=== PATIENT | female | born 1930 | race Caucasian/White ===

== ENCOUNTER → 2016-06-07 | Outpatient (CLI) | payer MEDICARE ==
[2016-06-07 18:14] LABS: MEAN CORPUSCULAR HEMOGLOBIN 32.1 pg (27.0-33.0); MEAN CORPUSCULAR HGB CONC 31.9 g/dl (32.0-36.5); MEAN CORPUSCULAR VOLUME 100.6 fl (80.0-96.0); RED CELL DISTRIBUTION WIDTH 13.4 % (11.5-14.5)
[2016-06-07 18:38] LABS: ALBUMIN 3.3 GM/DL (3.2-5.2); ALBUMIN/GLOBULIN RATIO 1.18 (1.00-1.93); ALKALINE PHOSPHATASE 79 U/L (45-117); ALT/SGPT 25 U/L (12-78); ANION GAP 7 MEQ/L (8-16); AST/SGOT 24 U/L (15-37); BILIRUBIN,TOTAL 0.4 MG/DL (0.2-1.0); BLOOD UREA NITROGEN 11 MG/DL (7-18); CALCIUM LEVEL 8.7 MG/DL (8.8-10.2); CARBON DIOXIDE LEVEL 34 MEQ/L (21-32); CHLORIDE LEVEL 101 MEQ/L (98-107); CHOLESTEROL LEVEL 163 MG/DL (<200); GLOMERULAR FILTRATION RATE > 60.0 (>32); GLUCOSE, FASTING 82 MG/DL (83-110); POTASSIUM SERUM 4.2 MEQ/L (3.5-5.1); SODIUM LEVEL 142 MEQ/L (136-145); TOTAL PROTEIN 6.1 GM/DL (6.4-8.2); TRIGLYCERIDES LEVEL 114 MG/DL (<150)
== END ==
LOC: M WUC 12:51
PROVIDERS: ATTEND Nurse Practitioner Family
DX: E78.00 Pure hypercholesterolemia, unspecified (principal); M81.0 Age-related osteoporosis without current pathological fracture; I10 Essential (primary) hypertension; E55.9 Vitamin D deficiency, unspecified

== ENCOUNTER → 2016-06-07 | Outpatient (CLI) | payer MEDICARE | LOC: M WUC 12:46 | PROVIDERS: ATTEND Physician Assistant Medical | DX: R25.1 Tremor, unspecified (principal) ==

== ENCOUNTER → 2016-07-06 | Outpatient (REF) | payer MEDICARE ==
[2016-07-06 16:47] LABS: MEAN CORPUSCULAR HEMOGLOBIN 32.3 pg (27.0-33.0); MEAN CORPUSCULAR HGB CONC 32.7 g/dl (32.0-36.5); RED CELL DISTRIBUTION WIDTH 12.8 % (11.5-14.5); WHITE BLOOD COUNT 11.1 K/mm3 (4.0-10.0)
[2016-07-06 17:05] LABS: VITAMIN B12 LEVEL 712 PG/ML (247-911)
[2016-07-06 17:06] LABS: FOLATE > 24.0 NG/ML (>5.4)
== END ==
LOC: M LABDRAW1 15:26
PROVIDERS: ATTEND Nurse Practitioner Family
DX: E53.8 Deficiency of other specified B group vitamins (principal); D64.9 Anemia, unspecified

== ENCOUNTER → 2016-09-07 | Outpatient (REF) | payer MEDICARE ==
[2016-09-07 13:17] LABS: FOLATE 21.9 NG/ML
== END ==
LOC: M LABDRAW1 12:05
PROVIDERS: ATTEND Internal Medicine Gastroenterology
DX: K50.00 Crohn's disease of small intestine without complications (principal); E78.5 Hyperlipidemia, unspecified; I10 Essential (primary) hypertension

== ENCOUNTER → 2016-09-07 | Outpatient (REF) | payer MEDICARE ==
[2016-09-07 13:03] LABS: MEAN CORPUSCULAR VOLUME 99.8 fl (80.0-96.0); RED CELL DISTRIBUTION WIDTH 12.9 % (11.5-14.5); WHITE BLOOD COUNT 11.4 K/mm3 (4.0-10.0)
[2016-09-07 13:08] LABS: ALBUMIN 3.3 GM/DL (3.2-5.2); ALBUMIN/GLOBULIN RATIO 1.22 (1.00-1.93); ALKALINE PHOSPHATASE 68 U/L (45-117); ALT/SGPT 22 U/L (12-78); ANION GAP 6 MEQ/L (8-16); AST/SGOT 19 U/L (15-37); BILIRUBIN,TOTAL 0.5 MG/DL (0.2-1.0); BLOOD UREA NITROGEN 8 MG/DL (7-18); CALCIUM LEVEL 8.3 MG/DL (8.8-10.2); CARBON DIOXIDE LEVEL 32 MEQ/L (21-32); CHLORIDE LEVEL 100 MEQ/L (98-107); CHOLESTEROL LEVEL 153 MG/DL (<200); CREATININE FOR GFR 0.61 MG/DL (0.55-1.02); GLOMERULAR FILTRATION RATE > 60.0 (>32); GLUCOSE, FASTING 88 MG/DL (83-110); POTASSIUM SERUM 4.4 MEQ/L (3.5-5.1); SODIUM LEVEL 138 MEQ/L (136-145); TRIGLYCERIDES LEVEL 83 MG/DL (<150)
== END ==
LOC: M LABDRAW1 12:06
PROVIDERS: ATTEND Nurse Practitioner Family
DX: E78.5 Hyperlipidemia, unspecified (principal); I10 Essential (primary) hypertension

== ENCOUNTER → 2016-12-08 | Outpatient (REF) | payer MEDICARE ==
[2016-12-08 11:37] LABS: MEAN CORPUSCULAR HGB CONC 32.3 g/dl (32.0-36.5); MEAN CORPUSCULAR VOLUME 99.2 fl (80.0-96.0); RED CELL DISTRIBUTION WIDTH 12.8 % (11.5-14.5); WHITE BLOOD COUNT 12.2 K/mm3 (4.0-10.0)
[2016-12-08 12:23] LABS: ALBUMIN 3.3 GM/DL (3.2-5.2); ALBUMIN/GLOBULIN RATIO 1.32 (1.00-1.93); ALKALINE PHOSPHATASE 68 U/L (45-117); ALT/SGPT 17 U/L (12-78); ANION GAP 6 MEQ/L (8-16); AST/SGOT 17 U/L (15-37); BILIRUBIN,TOTAL 0.4 MG/DL (0.2-1.0); BLOOD UREA NITROGEN 6 MG/DL (7-18); CALCIUM LEVEL 8.4 MG/DL (8.8-10.2); CARBON DIOXIDE LEVEL 31 MEQ/L (21-32); CHLORIDE LEVEL 102 MEQ/L (98-107); CHOLESTEROL LEVEL 161 MG/DL (<200); GLOMERULAR FILTRATION RATE > 60.0 (>32); GLUCOSE, FASTING 90 MG/DL (83-110); POTASSIUM SERUM 4.4 MEQ/L (3.5-5.1); SODIUM LEVEL 139 MEQ/L (136-145); TOTAL PROTEIN 5.8 GM/DL (6.4-8.2); TRIGLYCERIDES LEVEL 88 MG/DL (<150)
== END ==
LOC: M LABDRAW1 10:23
PROVIDERS: ATTEND Internal Medicine Cardiovascular Disease
DX: E55.9 Vitamin D deficiency, unspecified (principal); R25.1 Tremor, unspecified; Z79.01 Long term (current) use of anticoagulants; Z79.899 Other long term (current) drug therapy

== ENCOUNTER → 2016-12-08 | Outpatient (REF) | payer MEDICARE ==
[2016-12-13 00:07] LABS: PHENOBARBITAL (PRIMIDONE) 12 ug/mL (15-40)
== END ==
LOC: M LABDRAW1 10:26
PROVIDERS: ATTEND Physician Assistant Medical
DX: R25.1 Tremor, unspecified (principal); Z79.01 Long term (current) use of anticoagulants; Z79.899 Other long term (current) drug therapy

== ENCOUNTER → 2016-12-23 | Outpatient (CLI) | payer MEDICARE ==
[2016-12-23 11:27] LABS: BASO # 0.1 K/mm3 (0.0-0.2); BASO % 0.4 % (0.0-1.0); EOS # 0.2 K/mm3 (0.0-0.50); LARGE UNSTAINED CELL # 0.5 K/mm3 (0.0-0.4); LARGE UNSTAINED CELL % 3.6 % (0.0-4.0); LYMPH # 5.1 K/mm3 (1.5-4.5); LYMPH % 31.2 % (24.0-44.0); MEAN CORPUSCULAR HGB CONC 33.4 g/dl (32.0-36.5); MEAN CORPUSCULAR VOLUME 98.8 fl (80.0-96.0); NEUTROPHILS # 8.2 K/mm3 (1.8-7.7); NEUTROPHILS % 56.7 % (36.0-66.0); PLATELET COUNT, AUTOMATED 173 k/mm3 (150-450); RED CELL DISTRIBUTION WIDTH 13.2 % (11.5-14.5)
[2016-12-23 11:28] LABS: WHITE BLOOD COUNT 14.5 K/mm3 (4.0-10.0)
== END ==
LOC: M LAB 10:10
PROVIDERS: ATTEND Nurse Practitioner Family
DX: D53.9 Nutritional anemia, unspecified (principal)

== ENCOUNTER → 2017-01-12 | Outpatient (CLI) | payer MEDICARE ==
[2017-01-13 12:41] LABS: ANION GAP 10 MEQ/L (8-16); BLOOD UREA NITROGEN 9 MG/DL (7-18); CALCIUM LEVEL 8.4 MG/DL (8.8-10.2); CARBON DIOXIDE LEVEL 29 MEQ/L (21-32); CHLORIDE LEVEL 99 MEQ/L (98-107); CREATININE FOR GFR 0.73 MG/DL (0.55-1.02); GLOMERULAR FILTRATION RATE > 60.0 (>32); GLUCOSE, FASTING 161 MG/DL (83-110); POTASSIUM SERUM 4.3 MEQ/L (3.5-5.1); SODIUM LEVEL 138 MEQ/L (136-145)
== END ==
LOC: M LRY 15:03
PROVIDERS: ATTEND Nurse Practitioner Family
DX: I10 Essential (primary) hypertension (principal)

== ENCOUNTER → 2017-02-09 | Outpatient (CLI) | payer MEDICARE ==
[2017-02-09 13:33] LABS: ANION GAP 8 MEQ/L (8-16); BLOOD UREA NITROGEN 8 MG/DL (7-18); CALCIUM LEVEL 8.5 MG/DL (8.8-10.2); CARBON DIOXIDE LEVEL 31 MEQ/L (21-32); CHLORIDE LEVEL 100 MEQ/L (98-107); CREATININE FOR GFR 0.61 MG/DL (0.55-1.02); GLOMERULAR FILTRATION RATE > 60.0 (>32); GLUCOSE, FASTING 92 MG/DL (83-110); POTASSIUM SERUM 4.6 MEQ/L (3.5-5.1); SODIUM LEVEL 139 MEQ/L (136-145)
== END ==
LOC: M WUC 09:13
PROVIDERS: ATTEND Nurse Practitioner Family
DX: I10 Essential (primary) hypertension (principal)

== ENCOUNTER 2017-05-15 13:38 | Inpatient (IN) | payer MEDICARE ==
[~2017-05-15] VITALS: Ht 160 cm; Wt 70.2 kg
[2017-05-15] MEDS ORDERED: RALO1TAB PO (14:16)
[2017-05-15] MEDS ORDERED: PENT500C PO (14:16)
[2017-05-15] MEDS ORDERED: K-TA10TA2 PO (14:16)
[2017-05-15] MEDS ORDERED: VITA250L PO (14:16)
[2017-05-15] MEDS ORDERED: VITA2000 PO (14:16)
[2017-05-15] MEDS ORDERED: LASI40TA PO (14:16)
[2017-05-15] MEDS ORDERED: CENTCHW4 PO (14:16)
[2017-05-15] MEDS ORDERED: NAME28CA PO (14:16)
[2017-05-15] MEDS ORDERED: CALC600T60 PO (14:16)
[2017-05-15] MEDS ORDERED: MAGN200T PO (14:16)
[2017-05-15] MEDS ORDERED: INDE1CAP6 PO (14:16)
[2017-05-15] MEDS ORDERED: ASPI1TAB PO ×2 (14:16→17:09)
[2017-05-15] MEDS ORDERED: PRIM250T8 PO ×3 (14:16→17:07)
[2017-05-15] MEDS ORDERED: NS 1,000 ML IV SCH (14:45)
[2017-05-15] MEDS ORDERED: MORPHINE 2 MG/ML 1ML SYRINGE IV ONE (14:45)
[2017-05-15] MEDS ORDERED: ONDANSETRON 4MG/2ML VIAL (J2405) IV ONE (14:45)
--- NOTE | 2017-05-15 15:25 | REP ---
CT STUDY OF THE CERVICAL SPINE WITHOUT CONTRAST: HISTORY: Injury in a fall. TECHNIQUE: Helical scanning is acquired and overlapping 2 mm high resolution axial images were generated and reviewed at bone and soft tissue window settings. Coronal and sagittal multiplanar re-formations images are generated. CT FINDINGS: There is no evidence of cervical spine element fracture. No skull base fracture is seen. Cervical vertebral body heights are preserved. Alignment is normal. Facet joints are normally aligned bilaterally at each cervical level on multiplanar re-formations images. There is no evidence of intraspinal or paraspinal hematoma. No extra vertebral abnormality is seen. There are degenerative disc changes diffusely. These are most pronounced at C5-6 and C6-7 where there is anterior and some posterior osteophyte formation. There is left-sided uncovertebral spurring at C5-6. Incidental note is made of a 9 mm low density area in the right thyroid lobe consistent with cyst or nodule. IMPRESSION: Degenerative spondylosis changes. Otherwise negative CT study of the cervical spine without contrast. No fracture seen. 9 mm low density area right thyroid lobe. Signed by Uriel Pink MD 05/15/2017 05:06 P
--- NOTE | 2017-05-15 15:36 | REP ---
CT brain without contrast: History: Injury in a fall. Findings: Bone window settings demonstrate an intact bony calvarium. Digital account services representative radiographs are remarkable only for scalp swelling over the posterior vertex. This is consistent with scalp hematoma. It is confirmed on axial CT images. Bone window settings show no evidence of skull fracture. Visualized paranasal sinuses are clear. Some vascular calcifications noted in the distal carotid arteries. No intraorbital abnormality is seen. There is an acute extra-axial hyperdense fluid collection in the left posterior frontal lobe region consistent with an acute subdural hematoma. This measures 1.5 cm in greatest thickness by 4.5 cm in oblique anteroposterior dimension. There is subtle attenuation of the frontal horn of the lateral ventricle and compression of the adjacent sulci and gyri. No midline shift is appreciated. There is no evidence of parenchymal hemorrhage. No infarct or mass lesion is observed. There is diffuse moderate atrophy. Impression: Acute subdural hematoma left frontal lobe region. 1.5 x 4.5 x 5 cm craniocaudal. No skull fracture seen. There is however a scalp hematoma at the occiput. Diffuse atrophy and vascular calcification are also noted. Telephone report was provided at time of this dictation to the referring provider. Signed by Uriel Pink MD 05/15/2017 05:06 P
[2017-05-15 15:49] LABS: MEAN CORPUSCULAR HGB CONC 32.8 g/dl (32.0-36.5); MEAN CORPUSCULAR VOLUME 97.6 fl (80.0-96.0); PLATELET COUNT, AUTOMATED 171 10^3/uL (150-450); RED CELL DISTRIBUTION WIDTH 13.9 % (11.5-14.5); WHITE BLOOD COUNT 29.4 10^3/uL (4.0-10.0)
--- NOTE | 2017-05-15 15:54 | REP ---
Portable chest x-ray: Single view: History: Injury in a fall. Comparison chest x-ray December 25, 2015. Findings: Mild cardiomegaly is observed. EKG monitoring electrodes overlie the chest. There are clips in the lower mediastinum projecting over the lower thoracic spine as well as in the right upper quadrant of the abdomen unchanged. There is no evidence of pneumothorax or hydrothorax. There is an old rib fracture on the right effecting rib number seven. No acute rib fracture or other fracture is seen. There is diffuse osteopenia. The thoracic aorta is tortuous and somewhat calcific. Impression: No acute disease. Signed by Uriel Pink MD 05/15/2017 05:07 P
--- NOTE | 2017-05-15 15:55 | REP ---
AP pelvis and left hip: Four views: History: Injury in a fall. Findings: AP and lateral views of the left hip and AP view of the pelvis are presented. These demonstrate a nondisplaced intertrochanteric fracture of the left hip apparently in conjunction with an impacted subcapital femoral neck fracture. Bony pelvic ring is intact. No sacral or pelvic fracture is seen. Right hip is intact. There is some vascular calcification and diffuse osteopenia. Impression: Nondisplaced intertrochanteric and subcapital neck fractures left hip. Signed by Uriel Pink MD 05/15/2017 05:07 P
--- NOTE | 2017-05-15 15:55 | REP ---
Left femur: Three views: History: Injury in a fall. Findings: Three views of the left distal femur show no additional femur fracture. There is diffuse osteopenia. Chondrocalcinosis is noted. Vascular calcification is seen. Impression: Diffuse osteopenia. No additional femur fracture. Signed by Uriel Pink MD 05/15/2017 05:07 P
[2017-05-15 16:03] LABS: INR 1.01
[2017-05-15 16:16] LABS: ANION GAP 9 MEQ/L (8-16); BLOOD UREA NITROGEN 10 MG/DL (7-18); CALCIUM LEVEL 8.1 MG/DL (8.8-10.2); CARBON DIOXIDE LEVEL 31 MEQ/L (21-32); CHLORIDE LEVEL 99 MEQ/L (98-107); CREATININE FOR GFR 0.46 MG/DL (0.55-1.02); GLOMERULAR FILTRATION RATE > 60.0 (>32); GLUCOSE, FASTING 140 MG/DL (83-110); POTASSIUM SERUM 4.5 MEQ/L (3.5-5.1); SODIUM LEVEL 139 MEQ/L (136-145)
--- NOTE | 2017-05-15 16:58 | REP ---
CT study of the left hip without contrast: History: Injury in a fall. Fracture. Comparison radiographs demonstrate evidence of both subcapital and intertrochanteric fractures. CT technique: Helical scanning is acquired. 3 mm axial images are reformatted. Coronal and sagittal multiplanar re-formation images are generated reviewed. In addition, surface rendered 3-D reconstructed images are generated and viewed rotationally. CT findings: CT images confirm the presence of a slightly comminuted intertrochanteric fracture of the proximal femur. This is somewhat diastatic and 3-D reformation images demonstrate mild apex anterior angulation. No femoral neck fracture is appreciated however. There is some chondrocalcinosis surrounding the head neck junction in the adjacent soft tissues. There is osteoarthritis in the left hip joint mild in degree. Diffuse osteopenia is noted. The visualized left hemipelvis is intact. Some vascular calcifications noted. Impression: Intertrochanteric fracture left hip. No femoral neck fracture seen. Chondrocalcinosis and mild osteoarthritis. Signed by Uriel Pink MD 05/15/2017 05:09 P
[2017-05-15] MEDS ORDERED: ASPI81TA85 PO (16:59)
[2017-05-15] MEDS ORDERED: VITMTA PO (17:07)
[2017-05-15] MEDS ORDERED: MAGN64TASA PO (17:07)
[2017-05-15] MEDS ORDERED: [UNRECOGNIZED DRUG - OTHER] PO (17:11)
--- NOTE | 2017-05-15 18:48 | CR ---
DATE OF CONSULTATION: 05/15/2017 CONSULTATION REPORT FOR: Dr. Guillermo Quinteros (hospitalist consult) Hospitalist was consulted on Betzy Schreiber. She has been admitted to Dr. Quinteros's neurosurgical service. She fell off a stepladder hanging [facility] today and has a neurosurgical problem of acute subdural hematoma left frontal lobe. She also fractured her left hip and is being seen by orthopedics. Hospitalist consulted for medical care. Past medical history is difficult to obtain. Patient is 86 and vague on medical details. Primary care provider is Ciara Evans at [facility]. They are closed and the records are unavailable. I have encouraged telephone contact tomorrow to try to obtain a more complete past medical history. Apparently she has a history of hypertensive heart disease, she apparently has been seen by Dr. Negron at [facility], we do not have access to those records tonight either. She has no history of diabetes, chronic obstructive pulmonary disease (COPD), asthma, or bleeding disorders. Past medical history looks to include Crohn's disease. She has a B12 deficiency and history of osteoporosis or osteopenia, she is on raloxifene for this (see below for comment). HOME MEDICATIONS: - aspirin 81 mg daily - calcium carbonate 600 mg twice a day - vitamin D 400 units daily - B12 50 mcg daily - furosemide 40 mg daily - magnesium chloride 64 mg twice a day - Namenda XR 28 mg daily - Pentasa 500 mg three times a day - multivitamin - potassium chloride 10 mEq daily - primidone 125 mg in the evening, 250 mg in the morning - propranolol LA 160 mg daily - raloxifene 60 mg daily ALLERGIES: MEPERIDINE. SOCIAL HISTORY: Nonsmoker. Has attentive family members. REVIEW OF SYSTEMS: No recent problems with chest pain, shortness of breath, epistaxis, rectal bleeding or urinary bleeding. PHYSICAL EXAMINATION: Blood pressure 120/84, pulse 60, respiratory rate 18, 94% oxygen saturation on room air. GENERAL APPEARANCE: Elderly, frail, resting comfortably, alert and conversant. HEENT: Scalp hematoma over the occiput. NECK: Supple. LUNGS: Clear. HEART: Regular rhythm, 1/6 systolic ejection murmur. ABDOMEN: Soft, nontender, no masses. 1+ peripheral edema with distal pulses. Tender to palpation over left hip. LABORATORY DATA: Electrolytes unremarkable. Magnesium was not checked. White count is 29,000. IMPRESSION: 1. Hypertensive heart disease. Would recommend holding her aspirin and diuretic therapy. Continue her propranolol LA 160 mg daily. 2. Chronic edema. She is nothing by mouth. Will hold her Lasix. There is no sign of heart failure. Sounds like she takes her diuretic for lower extremity edema. Hold Lasix and potassium for now. Check magnesium level. 3. History of Crohn's disease. Continue her Pentasa 500 mg three times a day. 4. History of dementia. She is on Namenda XR 28 mg daily. We can substitute short acting Namenda and she can restart her XR version at home as it is not on formulary here. 5. B12 deficiency. Continue her oral B12. 6. History of tremor. She is on primidone which she will continue at 125 mg in the evening and 250 mg in the morning. 7. Osteoporosis. She is currently on raloxifene. Most recent [employer] guidelines for osteoporosis recommend not using raloxifene for osteoporosis due to limited benefit and increased thromboembolic risk. I will not continue this during hospitalization and advised family not to continue it upon discharge. They can discuss alternate medications with her primary care provider upon discharge. Dr. Carmona will be assuming hospitalist medical care in the morning.
--- NOTE | 2017-05-15 19:41 | ECGEPIP ---
Stationary ECG Study [facility] - ED Test Date: 2017-05-15 Pat Name: EZEKIEL PARKER Department: Room: - Gender: F Optical Advisor: LORI : [id number] Requested By: AMBER HARPER Order Number: [id number] Reading MD: Margaret Hampton Measurements Intervals [place] Rate: 64 P: 42 VA: 209 QRS: 5 QRSD: 81 T: -4 QT: 393 QTc: 407 Interpretive Statements SINUS RHYTHM WITH SINUS ARRHYTHMIA NSTTW ABNORMALITY Electronically Signed On 05-15-2017 19:40:49 EST by Margaret Hampton
[2017-05-15] MEDS ORDERED: ONDANSETRON 4MG/2ML VIAL (J2405) IV PRN (22:15)
[2017-05-15 22:30] VITALS: BP 150/71
[2017-05-15] MEDS: MORPHINE 2 MG/ML 1ML SYRINGE IV PRN (22:59)
[2017-05-15] MEDS: KCL 20MEQ IN D5/NS 1000ML 1,000 ML IV SCH (23:02)
[2017-05-15] MEDS: ACETAMINOPHEN TAB 650MG DOSE (2X325MG) PO SCH (23:15)
[2017-05-15] MEDS: PRIMIDONE 250 MG TAB PO SCH (23:39)
[2017-05-15] MEDS: MESALAMINE 250 MG CR CAP PO SCH (23:40)
[2017-05-16] VITALS (17 sets, daily range): BP systolic 91–145; BP diastolic 50–101
[2017-05-16 04:23] LABS: MEAN CORPUSCULAR HEMOGLOBIN 31.8 pg (27.0-33.0); MEAN CORPUSCULAR HGB CONC 33.3 g/dl (32.0-36.5); MEAN CORPUSCULAR VOLUME 95.4 fl (80.0-96.0); PLATELET COUNT, AUTOMATED 141 10^3/uL (150-450); RED CELL DISTRIBUTION WIDTH 13.9 % (11.5-14.5); WHITE BLOOD COUNT 15.7 10^3/uL (4.0-10.0)
[2017-05-16 04:43] LABS: ALBUMIN 2.6 GM/DL (3.2-5.2); ALKALINE PHOSPHATASE 62 U/L (45-117); ALT/SGPT 17 U/L (12-78); ANION GAP 8 MEQ/L (8-16); AST/SGOT 18 U/L (7-37); BILIRUBIN,DIRECT 0.1 MG/DL (0.0-0.2); BILIRUBIN,TOTAL 0.5 MG/DL (0.2-1.0); BLOOD UREA NITROGEN 11 MG/DL (7-18); CALCIUM LEVEL 7.5 MG/DL (8.8-10.2); CARBON DIOXIDE LEVEL 28 MEQ/L (21-32); CHLORIDE LEVEL 103 MEQ/L (98-107); CREATININE FOR GFR 0.53 MG/DL (0.55-1.02); GLOMERULAR FILTRATION RATE > 60.0 (>32); GLUCOSE, FASTING 141 MG/DL (83-110); SODIUM LEVEL 139 MEQ/L (136-145); TOTAL PROTEIN 5.5 GM/DL (6.4-8.2)
[2017-05-16] MEDS: MORPHINE 2 MG/ML 1ML SYRINGE IV PRN ×3 (04:59→20:56)
[2017-05-16] MEDS: ACETAMINOPHEN TAB 650MG DOSE (2X325MG) PO SCH ×4 (05:04→23:09)
--- NOTE | 2017-05-16 05:50 | REPUSA ---
CLINICAL HISTORY: Subdural hematoma. Followup exam. TECHNIQUE: Multiple axial CT images were obtained through the brain without IV contrast material. COMMENTS: Comparison to prior exam performed on 05/09/2017. Mild decrease in the size of the left frontal subdural hematoma. The maximum thickness of the hematoma has decreased from 1.3-1.1 cm on the current exam. Subsequent mild decrease in the mass effect on the left frontal lobe. Interval increase in the size of the left parietal component of the left subdural hematoma. It measur es 6 mm on the current exam. There is mild decrease in midline shift to the right side. There is normal configuration of sella turcica. There is diffuse age-appropriate cerebellar and cerebral atrophy with proportionally dilated ventricl es and cortical sulci. Right parietal subgaleal soft tissue hematoma. IMPRESSION: Comparison to prior exam performed on 05/09/2017. Mild decrease in the size of the left frontal subdural hematoma. The maximum thickness of the hematoma has decreased from 1.3 to 1.1 cm on the current exam. Subsequent mild decrease in the mass effect on the left frontal lobe. Interval increase in the size of the left parietal component of the left subdural hematoma. It measur es 6 mm on the current exam. Mild decrease in midline shift to the right side. Right parietal subgaleal soft tissue hematoma. Thank you for your kind referral of this patient.
[2017-05-16] MEDS ORDERED: MORPHINE 2 MG/ML 1ML SYRINGE IV ONE (06:00)
--- NOTE | 2017-05-16 07:35 | ED PDOC ---
Post-Departure Follow-Up radiology report faxed to Margaret Anderson MD May 16, 2017 07:35
--- NOTE | 2017-05-16 07:54 | IPNPDOC ---
Text Note Date of Service The patient was seen on 05/16/17. NOTE Subjective: Patient seen and examined at bedside. No acute overnight events. She does complain of hip pain with movement. Denies shortness of breath, chest pain, headaches, changes in vision. Objective: General: NAD, lying comfortably in bed, elderly HEENT: NC Lungs: CTA B/L Heart: +S1S2, RRR Abd: soft, NT, +BS Ext: no edema 86 yo female for acute SDH and left hip fx s/p mechanical fall. 1. SDH - management as per primary team - neurosurgery 2. Hip fx - pending ortho c/s - she states she is able to complete most of her ADLs independently including walking for over 15 minutes, and ascending/descending 25 stairs at her house without any chest pain or shortness of breath; no acute changes on ECG; she is medically optimized from a cardiac risk stratification perspective for planned orthopedic surgery, and will be considered moderate/high risk; further risk stratification as needed from the primary team with regards to her neurosurgical issues 3. HTN - management as per primary team 4. CHF 5. DVT prophylaxis - as per primary team VS,Hirenbone, I+O VS, Fishbone, I+O Laboratory Tests 05/15/17 15:30 Red Blood Count 3.78 L, Mean Corpuscular Volume 97.6 H, Mean Corpuscular Hemoglobin 32.0, Mean Corpuscular Hemoglobin Concent 32.8, Red Cell Distribution Width 13.9, Calcium Level 8.1 L 05/16/17 04:15 Red Blood Count 3.46 L, Mean Corpuscular Volume 95.4, Mean Corpuscular Hemoglobin 31.8, Mean Corpuscular Hemoglobin Concent 33.3, Red Cell Distribution Width 13.9 05/16/17 04:16 Calcium Level 7.5 L, Aspartate Amino Transf (AST/SGOT) 18, Alanine Aminotransferase (ALT/SGPT) 17, Alkaline Phosphatase 62, Total Bilirubin 0.5, Direct Bilirubin 0.1, Total Protein 5.5 L, Albumin 2.6 L Vital Signs Date Time Temp Pulse Resp B/P (MAP) Pulse Ox O2 Delivery O2 Flow Rate FiO2 05/16/17 06:15 24 05/16/17 06:00 73 125/64 (84) 100 Nasal Cannula 2.0 05/16/17 04:00 98.3 GARY ALICEA MD May 16, 2017 07:54
[2017-05-16] MEDS: PROPRANOLOL 80 MG LA CAP PO SCH (09:00)
[2017-05-16] MEDS: PRIMIDONE 250 MG TAB PO SCH ×2 (09:53→23:09)
[2017-05-16] MEDS: MESALAMINE 250 MG CR CAP PO SCH ×3 (09:53→23:09)
[2017-05-16] MEDS: CYANOCOBALAMIN 250 MCG TABLET PO SCH (09:54)
[2017-05-16] MEDS: MEMANTINE 5MG TABLET (NAMENDA) PO SCH ×2 (09:54→23:09)
[2017-05-16] MEDS: KCL 20MEQ IN D5/NS 1000ML 1,000 ML IV SCH (11:28)
--- NOTE | 2017-05-16 11:30 | CR ---
DATE OF CONSULTATION: 05/15/2017 INDICATION: Left hip fracture. HISTORY OF PRESENT ILLNESS: Betzy is an 86-year-old female that suffered a mechanical fall and landed on her left hip. She does not use a cane or assistive although the daughter thinks that she should. She fell and hit her head, in addition landing on her left hip. She had pain and inability to bear weight on the left side. She was brought to [facility] where x-rays revealed a fracture of the proximal femur and a head CT revealed a subdural hematoma. Neurosurgery was consulted for the subdural hematoma. Dr. Quinteros had stated the patient needed one week without blood thinners to minimize the risk of progression of the subdural hematoma and would likely need 24 hours prior to surgery to make sure on a repeat head CT the subdural is stable. For the patient's full past medical history, past surgical history, medications, allergies, social history, and review of systems, please see the admitting history and physical performed by the hospitalist. Exam revealed an elderly female in no distress. Alert and oriented times three. Neurologic: Appropriate mood and affect. Responds to questions appropriately. Cardiovascular: 2+ PT pulse with a regular rate. Pulmonary: Regular nonlabored breathing. Skin at the left hip was intact, without lesions. Musculoskeletal: Patient was tender to palpation at the greater trochanter. Any attempt at log roll elicited proximal femur pain. The knee was nontender. She wiggled her toes and sensation to light touch was grossly intact distally. X-rays of the left hip and femur revealed a mildly displaced intertrochanteric femur fracture. A CT of the pelvis was also obtained confirming that diagnosis. ASSESSMENT/PLAN: Bryan Schreiber is an 86 female with a left proximal femur fracture requiring surgical stabilization. We discussed operative and nonoperative treatment. The patient does not have dementia, no indication for nonoperative treatment. We discussed open reduction internal fixation (ORIF) with dynamic hip screw versus cephalomedullary nail. I did explain to the family that I would be unavailable to perform surgery as I will be out of town and that one of my partners would perform that surgery. Family will get consent from whoever is going to do the surgery.
[2017-05-16] MEDS ORDERED: fentaNYL 100 MCG/2 ML INJECTION (J3010) As Ordered ONE (17:08)
[2017-05-16] MEDS ORDERED: MIDAZOLAM INJ 2 MG/2 ML VIAL (J2250) As Ordered ONE (17:08)
[2017-05-16] MEDS ORDERED: KETAMINE HCL 200 MG/20 ML VIAL As Ordered ONE (17:09)
[2017-05-16] MEDS ORDERED: PROPOFOL 200 MG/20 ML VIAL As Ordered ONE (17:09)
[2017-05-16] MEDS ORDERED: BUPIVACAINE/EPIN 0.5% 30 ML VIAL As Ordered ONE (17:18)
[2017-05-16] MEDS ORDERED: ceFAZolin 2 GM/D5W 50 ML IV BAG (J0690 PER 500MG) As Ordered ONE (17:18)
[2017-05-16] MEDS ORDERED: LIDOCAINE W/EPINEPHRINE 1% 20ML VIAL As Ordered ONE (17:18)
[2017-05-16] MEDS ORDERED: PHENYLephrine HCL 500 MCG/5 ML (100MCG/ML) SYRINGE (J2370) As Ordered ONE (18:06)
[2017-05-16] MEDS ORDERED: PHENYLEPHRINE INJ 10MG/ML VIAL (J2370) As Ordered ONE (18:19)
[2017-05-16] MEDS ORDERED: ONDANSETRON 4MG/2ML VIAL (J2405) As Ordered ONE (18:20)
--- NOTE | 2017-05-16 19:12 | REP ---
LEFT FEMUR: 05/16/2017. Comparison: Left hip and femur series 05/15/2017. Findings: Six images from C-arm fluoroscopy provided to Dr. Adam of the orthopedic division. Intertrochanteric fracture is fixed in that left hip with intramedullary mike and a blade paddle device with its tip in the femoral head not extending to the articular cortex. Essentially anatomic alignment of the major fragments noted. A single screw across the proximal shaft of the intramedullary mike. I Fluoroscopy time: 58 seconds. Signed by Jose De Jesus Abel MD 05/16/2017 08:06 P
[2017-05-16] MEDS ORDERED: ACETAMINOPHEN TAB 650MG DOSE (2X325MG) PO PRN (19:30)
[2017-05-16] MEDS ORDERED: fentaNYL 100 MCG/2 ML INJECTION (J3010) IV PRN (19:30)
[2017-05-16] MEDS ORDERED: ONDANSETRON 4MG/2ML VIAL (J2405) IV PRN (19:30)
[2017-05-16] MEDS ORDERED: LR 1,000 ML IV SCH (19:30)
--- NOTE | 2017-05-16 19:56 | REP ---
LEFT HIP COMPLETE: 05/16/2017. Comparison: Left femur (intraoperative) 05/16/2017, hip and femur with CT hip 05/15/2017. Findings: Two images show ORIF of an intertrochanteric fracture. Short intramedullary mike with a single screw transfixing it to the proximal femoral shaft. A blade paddle unit in the femoral head with reapproximation to near anatomic alignment of the intertrochanteric fracture. Blade paddle not extending beyond articular surface of the femoral head. Bones demineralized. No other fractures or focal lesion. Skin keaton over the lateral hip. Signed by Jose De Jesus Abel MD 05/16/2017 08:09 P
[2017-05-16] MEDS: traMADol 50 MG TAB PO PRN (21:22)
[2017-05-17] VITALS (7 sets, daily range): BP systolic 118–149; BP diastolic 56–68
[2017-05-17] MEDS: MORPHINE 2 MG/ML 1ML SYRINGE IV PRN ×5 (00:09→22:13)
[2017-05-17] MEDS: KCL 20MEQ IN D5/NS 1000ML 1,000 ML IV SCH ×2 (02:12→13:24)
[2017-05-17] MEDS ORDERED: MORPHINE 2 MG/ML 1ML SYRINGE IV ONE (02:45)
[2017-05-17] MEDS ORDERED: diphenhydrAMINE 25 MG CAP PO ONE (02:45)
[2017-05-17] MEDS: ACETAMINOPHEN TAB 650MG DOSE (2X325MG) PO SCH ×3 (05:34→18:00)
[2017-05-17 06:45] LABS: MEAN CORPUSCULAR HEMOGLOBIN 31.8 pg (27.0-33.0); MEAN CORPUSCULAR HGB CONC 32.2 g/dl (32.0-36.5); MEAN CORPUSCULAR VOLUME 98.7 fl (80.0-96.0); PLATELET COUNT, AUTOMATED 106 10^3/uL (150-450); RED CELL DISTRIBUTION WIDTH 13.9 % (11.5-14.5)
[2017-05-17 07:12] LABS: ANION GAP 7 MEQ/L (8-16); BLOOD UREA NITROGEN 9 MG/DL (7-18); CARBON DIOXIDE LEVEL 24 MEQ/L (21-32); CHLORIDE LEVEL 103 MEQ/L (98-107); CREATININE FOR GFR 0.46 MG/DL (0.55-1.02); GLOMERULAR FILTRATION RATE > 60.0 (>32); GLUCOSE, FASTING 163 MG/DL (83-110); POTASSIUM SERUM 4.5 MEQ/L (3.5-5.1); SODIUM LEVEL 134 MEQ/L (136-145)
--- NOTE | 2017-05-17 08:03 | RO ---
DATE OF PROCEDURE: 05/16/2017 PREPROCEDURE DIAGNOSIS: Left proximal femur fracture. POSTPROCEDURE DIAGNOSIS: Left proximal femur fracture. PROCEDURE: Left hip cephalomedullary nail fixation. SURGEON: Dr. Douglas Machado ELECTRICAL APPLIANCE SERVICER: none ANESTHESIA PROVIDER: Dr. Coulter ANESTHESIA: Single shot spinal and local. IMPLANT USED: Synthes shot TFNA 170 mm x 11 mm with a 95 mm helical blade and a 32 mm x 5 mm distal interlocking screw. ANTIBIOTICS: 2 grams Ancef given within 1 hour of incision. ESTIMATED BLOOD LOSS: 100 mL. MATERIALS SENT TO LAB: None. COMPLICATIONS: None. INDICATION FOR PROCEDURE: Betzy Schreiber is an 86-year-old female community ambulator with no assisted devices who sustained a mechanical fall yesterday resulting in a left stable intertrochanteric femur fracture in addition to a small subdural hematoma. Patient was admitted to the ICU for observation and serial head CT. Neurosurgery was consulted for management of her subdural hematoma and it was found to be stable. The patient was medially optimized by the hospitalist service and medically cleared by the neurosurgeon for fixation of her left proximal femur fracture. I discussed with the patient and her family that the risks, benefits, indications, and alternatives with operative versus nonoperative management and recommended surgical fixation for left proximal femur fracture to allow for early weightbearing. I counseled the patient that I will be her operating surgeon and her followup care will conducted by [facility], she expressed understanding of this arrangement and provided informed consent for a left hip closed versus open reduction cephalomedullary nail fixation. INTRAOPERATIVE FINDINGS: Patient had a stable intertochanteric femur fracture with stable fixation. DESCRIPTION OF PROCEDURE: The patient was positively identified in the preoperative holding area where the surgical site was marked. She was then brought to the operating room where she was given the single shot spinal anesthesia for intraoperative pain control. She was placed supine on the fracture table with all bony prominences appropriately padded. Sequential compression devices (SCDs) were placed on upper extremities for deep venous thrombosis (DVT) prophylaxis. I obtained a provisional reduction using traction and adduction. I obtained director of plant operations fluoroscopic images and confirmed reduction on fluoroscopy. The spots were marked. She was then prepped and draped in the usual sterile fashion. A final time-out was performed. I began by making a 3 cm incision just about 3 cm proximal and posterior to the greater trochanter. I dissected through skin and subcutaneous tissue and introduced the 3.2 mm threaded guide pin and used fluoroscopic guidance to confirm that it was centered on AP and lateral fluoroscopic imaging on the tip of the greater trochanter, it was then introduced to the level of the lesser trochanter and this was followed by placement of the opening reamer down to the level of the lesser trochanter. This was then followed by placement of a ball tip guidewire. The nail was then inserted. There was found to be some mild difficulty inserting the nail secondary to narrow femoral canal. I then made a single pass with the 12.5 mm reamer followed by easy placement of the nail to an appropriate depth. I then made an accessory lateral incision distally for placement of the guide for the helical blade. The helical blade guide was then placed. The guide pin was entered and placed centered on the femoral neck on AP and lateral fluoroscopic imaging to an appropriate depth, it was measured to a depth of 95 mm, it was reamed in a standard fashion and then 95 mm helical blade was placed. I confirmed on fluoroscopy that there was no intra-articular penetration of implants. I then placed the guide for the distal interlocking screw through the same incision and drilled and measured for a 32 mm screw. A 32 mm x 5 mm distal interlocking screw was placed in a standard fashion. Final fluoroscopic images were taken. The wounds were thoroughly irrigated with normal saline and closed in layers of #2-0 Vicryl of subcutaneous layer and keaton through the skin. Sterile dressings were applied. I was present and scrubbed in for all portions of the case. POSTOPERATIVE PLAN: Patient will return to the hospital floor. She will be weightbearing at tolerated to the left lower extremity and continue her other care with the hospitalist service. She will be discharged from the hospital when criteria met. JOCELIN
[2017-05-17] MEDS: MESALAMINE 250 MG CR CAP PO SCH ×3 (08:43→22:13)
[2017-05-17] MEDS: traMADol 50 MG TAB PO PRN ×3 (08:43→23:33)
[2017-05-17] MEDS: PROPRANOLOL 80 MG LA CAP PO SCH (08:47)
[2017-05-17] MEDS: MEMANTINE 5MG TABLET (NAMENDA) PO SCH ×2 (08:48→22:13)
[2017-05-17] MEDS: CYANOCOBALAMIN 250 MCG TABLET PO SCH (08:48)
[2017-05-17] MEDS: PRIMIDONE 250 MG TAB PO SCH ×2 (08:49→22:14)
[2017-05-17] MEDS: MOM 30ML SUSPENSION UDC PO SCH (08:49)
[2017-05-17] MEDS: SENOKOT S TAB PO SCH ×2 (08:49→22:13)
[2017-05-17] MEDS: MIRALAX *UNIT DOSE* 17GM PACKET PO SCH (08:50)
--- NOTE | 2017-05-17 13:52 | REP ---
Left hip two views: Comparison is 05/16/2017. There is gamma nail fixation of the left hip. The hardware and skeletal structures are in satisfactory positions alignment. There is no interval change. Signed by Dalton Green MD 05/17/2017 01:44 P
[2017-05-17] MEDS: POLYVINYL ALCOHOL OPHTH SOLN 15 ML(LIQUITEARS) OU PRN ×2 (15:34→23:33)
[2017-05-18 06:00] VITALS: BP 131/69
[2017-05-18 07:13] LABS: MEAN CORPUSCULAR HEMOGLOBIN 32.2 pg (27.0-33.0); MEAN CORPUSCULAR HGB CONC 33.3 g/dl (32.0-36.5); MEAN CORPUSCULAR VOLUME 96.6 fl (80.0-96.0); PLATELET COUNT, AUTOMATED 110 10^3/uL (150-450); RED CELL DISTRIBUTION WIDTH 13.8 % (11.5-14.5); WHITE BLOOD COUNT 17.7 10^3/uL (4.0-10.0)
[2017-05-18 07:33] LABS: ANION GAP 5 MEQ/L (8-16); BLOOD UREA NITROGEN 8 MG/DL (7-18); CARBON DIOXIDE LEVEL 29 MEQ/L (21-32); CHLORIDE LEVEL 101 MEQ/L (98-107); CREATININE FOR GFR 0.44 MG/DL (0.55-1.02); GLOMERULAR FILTRATION RATE > 60.0 (>32); GLUCOSE, FASTING 139 MG/DL (83-110); POTASSIUM SERUM 4.8 MEQ/L (3.5-5.1); SODIUM LEVEL 135 MEQ/L (136-145)
[2017-05-18] MEDS: MEMANTINE 5MG TABLET (NAMENDA) PO SCH ×2 (08:56→21:29)
[2017-05-18] MEDS: CYANOCOBALAMIN 250 MCG TABLET PO SCH (08:56)
[2017-05-18] MEDS: MOM 30ML SUSPENSION UDC PO SCH (08:56)
[2017-05-18] MEDS: PRIMIDONE 250 MG TAB PO SCH ×2 (08:56→21:29)
[2017-05-18] MEDS: SENOKOT S TAB PO SCH ×2 (08:56→21:28)
[2017-05-18] MEDS: MIRALAX *UNIT DOSE* 17GM PACKET PO SCH (08:56)
[2017-05-18] MEDS: MESALAMINE 250 MG CR CAP PO SCH ×3 (08:56→21:28)
[2017-05-18] MEDS: PROPRANOLOL 80 MG LA CAP PO SCH (08:57)
[2017-05-18] MEDS: traMADol 50 MG TAB PO PRN ×2 (10:53→21:28)
--- NOTE | 2017-05-18 11:04 | IPNPDOC ---
Text Note Date of Service The patient was seen on 05/18/17. NOTE Subjective: Patient seen and examined at bedside. No acute overnight events. Patient denies any new medical complaints today. Denies headaches, changes in vision, shortness of breath, chest pain. Objective: General: NAD, lying comfortably in bed, elderly HEENT: NC Lungs: CTA B/L Heart: +S1S2, RRR Abd: soft, NT, +BS Ext: no edema 86 yo female for acute SDH and left hip fx s/p mechanical fall POD #2. 1. SDH - management as per primary team - neurosurgery 2. Hip fx - POD #2 - follow as per ortho - anticoagulation as per ortho/neurosurg 3. HTN - management as per neurosurg 4. Anemia - serial H/H - stool occult blood 4. CHF - compensated 5. DVT prophylaxis - as per ortho/neurosurg VS,Fishbone, I+O VS, Fishbone, I+O Laboratory Tests 05/18/17 07:06 Red Blood Count 2.61 L, Mean Corpuscular Volume 96.6 H, Mean Corpuscular Hemoglobin 32.2, Mean Corpuscular Hemoglobin Concent 33.3, Red Cell Distribution Width 13.8, Calcium Level 7.0 L Vital Signs Date Time Temp Pulse Resp B/P (MAP) Pulse Ox O2 Delivery O2 Flow Rate FiO2 05/18/17 10:53 18 05/18/17 08:57 105 131/69 05/18/17 06:00 97.3 96 Room Air 05/17/17 16:10 2.0 I&O- Last 24 Hours up to 6 AM 05/19/17 06:00 Intake Total 200 ml Balance 200 ml GARY ALICEA MD May 18, 2017 11:04
[2017-05-18 14:00] VITALS: BP 110/68
--- NOTE | 2017-05-18 15:16 | REP ---
Head CT without contrast: History: Interim evaluation subdural hematoma. Comparison head CT study May 16, 2017. May 15, 2017 prior study is also reviewed. Findings: Bone window settings remain unremarkable. Some residual scalp hematoma persists at the vertex in the right parietal region. A left subdural hematoma is again seen. The hyperdense component at the frontal lobe region has decreased in thickness from 15 mm to 9 mm today. This component originally measured 45 mm in length on axial images, today 34 mm. The left parietal component is essentially isodense and 3-4 mm in thickness. There is no significant midline shift. No new hemorrhage is seen. No parenchymal hemorrhage is noted. Impression: Continued gradual decrease in the size of the left-sided subdural hematoma. Signed by Uriel Pink MD 05/19/2017 08:13 A
[2017-05-18] MEDS: POLYVINYL ALCOHOL OPHTH SOLN 15 ML(LIQUITEARS) OU PRN (17:22)
[2017-05-18 22:00] VITALS: BP 147/72
[2017-05-19 06:00] VITALS: BP 113/60
[2017-05-19 07:17] LABS: MEAN CORPUSCULAR HEMOGLOBIN 32.2 pg (27.0-33.0); MEAN CORPUSCULAR HGB CONC 33.3 g/dl (32.0-36.5); MEAN CORPUSCULAR VOLUME 96.6 fl (80.0-96.0); PLATELET COUNT, AUTOMATED 129 10^3/uL (150-450); RED CELL DISTRIBUTION WIDTH 13.7 % (11.5-14.5); WHITE BLOOD COUNT 16.6 10^3/uL (4.0-10.0)
[2017-05-19 07:38] LABS: ANION GAP 5 MEQ/L (8-16); BLOOD UREA NITROGEN 8 MG/DL (7-18); CALCIUM LEVEL 6.9 MG/DL (8.8-10.2); CARBON DIOXIDE LEVEL 29 MEQ/L (21-32); CHLORIDE LEVEL 100 MEQ/L (98-107); CREATININE FOR GFR 0.45 MG/DL (0.55-1.02); GLOMERULAR FILTRATION RATE > 60.0 (>32); GLUCOSE, FASTING 135 MG/DL (83-110); POTASSIUM SERUM 4.7 MEQ/L (3.5-5.1); SODIUM LEVEL 134 MEQ/L (136-145)
[2017-05-19] MEDS: MOM 30ML SUSPENSION UDC PO SCH (10:35)
[2017-05-19] MEDS: MIRALAX *UNIT DOSE* 17GM PACKET PO SCH (10:36)
[2017-05-19] MEDS: SENOKOT S TAB PO SCH ×2 (10:36→21:31)
[2017-05-19] MEDS: MEMANTINE 5MG TABLET (NAMENDA) PO SCH ×2 (10:36→21:32)
[2017-05-19] MEDS: MESALAMINE 250 MG CR CAP PO SCH ×3 (10:36→21:32)
[2017-05-19] MEDS: CYANOCOBALAMIN 250 MCG TABLET PO SCH (10:37)
[2017-05-19] MEDS: PROPRANOLOL 80 MG LA CAP PO SCH (10:37)
[2017-05-19] MEDS: PRIMIDONE 250 MG TAB PO SCH ×2 (10:38→21:31)
[2017-05-19] MEDS: traMADol 50 MG TAB PO PRN ×2 (10:41→21:54)
[2017-05-19] MEDS: POLYVINYL ALCOHOL OPHTH SOLN 15 ML(LIQUITEARS) OU PRN (10:41)
[2017-05-19 14:00] VITALS: BP 140/67
[2017-05-19] MEDS ORDERED: traMADol 50 MG TAB PO PRN (16:15)
[2017-05-19 22:00] VITALS: BP 145/72
[2017-05-20 06:00] VITALS: BP 131/79
[2017-05-20 06:26] LABS: MEAN CORPUSCULAR HEMOGLOBIN 30.4 pg (27.0-33.0); MEAN CORPUSCULAR HGB CONC 33.7 g/dl (32.0-36.5); MEAN CORPUSCULAR VOLUME 90.2 fl (80.0-96.0); PLATELET COUNT, AUTOMATED 128 10^3/uL (150-450); RED CELL DISTRIBUTION WIDTH 16.7 % (11.5-14.5); WHITE BLOOD COUNT 15.4 10^3/uL (4.0-10.0)
[2017-05-20 06:47] LABS: ANION GAP 5 MEQ/L (8-16); BLOOD UREA NITROGEN 7 MG/DL (7-18); CALCIUM LEVEL 7.3 MG/DL (8.8-10.2); CARBON DIOXIDE LEVEL 29 MEQ/L (21-32); CHLORIDE LEVEL 104 MEQ/L (98-107); GLOMERULAR FILTRATION RATE > 60.0 (>32); GLUCOSE, FASTING 116 MG/DL (83-110); POTASSIUM SERUM 4.3 MEQ/L (3.5-5.1); SODIUM LEVEL 138 MEQ/L (136-145)
--- NOTE | 2017-05-20 08:30 | IPNPDOC ---
Text Note Date of Service The patient was seen on 05/19/17. NOTE Subjective: Patient seen and examined at bedside. No acute overnight events. Patient denies any new medical complaints today. Denies headaches, changes in vision, shortness of breath, chest pain. Objective: General: NAD, lying comfortably in bed, elderly HEENT: NC Lungs: CTA B/L Heart: +S1S2, RRR Abd: soft, NT, +BS Ext: no edema 86 yo female for acute SDH and left hip fx s/p mechanical fall POD #3. 1. SDH - management as per neurosurgery 2. Hip fx - POD #3 - follow as per ortho - anticoagulation as per ortho/neurosurg 3. HTN - management as per neurosurg 4. Anemia - trending down - will transfuse 2 units - serial H/H - stool occult blood 5. CHF - compensated 6. Crohn's - follows with Dr. Villarreal - last visit April 2017 - continue Pentasa 5. DVT prophylaxis - as per ortho/neurosurg VS,Fishbone, I+O VS, Fishbone, I+O Laboratory Tests 05/19/17 22:18 05/20/17 06:09 Red Blood Count 3.36 L, Mean Corpuscular Volume 90.2, Mean Corpuscular Hemoglobin 30.4, Mean Corpuscular Hemoglobin Concent 33.7, Red Cell Distribution Width 16.7 H, Calcium Level 7.3 L Vital Signs Date Time Temp Pulse Resp B/P (MAP) Pulse Ox O2 Delivery O2 Flow Rate FiO2 05/20/17 06:00 98.5 95 18 131/79 (96) 96 Room Air 05/17/17 16:10 2.0 GARY ALICEA MD May 20, 2017 08:30
--- NOTE | 2017-05-20 08:33 | IPNPDOC ---
Text Note Date of Service The patient was seen on 05/20/17. NOTE Subjective: Patient seen and examined at bedside. No acute overnight events. Patient denies any new medical complaints today. Denies headaches, changes in vision, shortness of breath, chest pain. She states she does have a poor appetite today. Objective: General: NAD, lying comfortably in bed, elderly HEENT: NC Lungs: CTA B/L Heart: +S1S2, RRR Abd: soft, NT, +BS Ext: no edema 86 yo female for acute SDH and left hip fx s/p mechanical fall POD #4. 1. SDH - management as per neurosurgery 2. Hip fx - POD #4 - follow as per ortho - anticoagulation as per ortho/neurosurg 3. HTN - management as per neurosurg 4. Anemia - s/p 2 units PRBC - stable - continue to follow 5. CHF - compensated 6. Crohn's - follows with Dr. Villarreal - last visit April 2017 - continue Pentasa 5. DVT prophylaxis - as per ortho/neurosurg VS,Fishbone, I+O VS, Fishbone, I+O Laboratory Tests 05/19/17 22:18 05/20/17 06:09 Red Blood Count 3.36 L, Mean Corpuscular Volume 90.2, Mean Corpuscular Hemoglobin 30.4, Mean Corpuscular Hemoglobin Concent 33.7, Red Cell Distribution Width 16.7 H, Calcium Level 7.3 L Vital Signs Date Time Temp Pulse Resp B/P (MAP) Pulse Ox O2 Delivery O2 Flow Rate FiO2 05/20/17 06:00 98.5 95 18 131/79 (96) 96 Room Air 05/17/17 16:10 2.0 GARY ALICEA MD May 20, 2017 08:33
[2017-05-20] MEDS: SENOKOT S TAB PO SCH ×2 (09:00→19:44)
[2017-05-20] MEDS: MIRALAX *UNIT DOSE* 17GM PACKET PO SCH (09:00)
[2017-05-20] MEDS: MOM 30ML SUSPENSION UDC PO SCH (09:00)
[2017-05-20] MEDS: CYANOCOBALAMIN 250 MCG TABLET PO SCH (09:21)
[2017-05-20] MEDS: MESALAMINE 250 MG CR CAP PO SCH ×3 (09:21→19:44)
[2017-05-20] MEDS: MEMANTINE 5MG TABLET (NAMENDA) PO SCH ×2 (09:22→19:44)
[2017-05-20] MEDS: PROPRANOLOL 80 MG LA CAP PO SCH (09:22)
[2017-05-20] MEDS: PRIMIDONE 250 MG TAB PO SCH ×2 (09:23→19:45)
[2017-05-20] MEDS: POLYVINYL ALCOHOL OPHTH SOLN 15 ML(LIQUITEARS) OU PRN (09:25)
[2017-05-20] MEDS: traMADol 50 MG TAB PO PRN ×2 (09:25→19:46)
[2017-05-20 14:00] VITALS: BP 138/86
[2017-05-20 22:00] VITALS: BP 139/80
[2017-05-21] MEDS: traMADol 50 MG TAB PO PRN ×3 (03:21→18:15)
[2017-05-21 06:00] VITALS: BP 129/77
[2017-05-21 06:45] LABS: MEAN CORPUSCULAR HEMOGLOBIN 30.2 pg (27.0-33.0); MEAN CORPUSCULAR HGB CONC 33.2 g/dl (32.0-36.5); MEAN CORPUSCULAR VOLUME 90.8 fl (80.0-96.0); PLATELET COUNT, AUTOMATED 159 10^3/uL (150-450); RED CELL DISTRIBUTION WIDTH 15.7 % (11.5-14.5); WHITE BLOOD COUNT 14.7 10^3/uL (4.0-10.0)
[2017-05-21 07:07] LABS: ANION GAP 6 MEQ/L (8-16); BLOOD UREA NITROGEN 7 MG/DL (7-18); CALCIUM LEVEL 7.1 MG/DL (8.8-10.2); CARBON DIOXIDE LEVEL 27 MEQ/L (21-32); CHLORIDE LEVEL 103 MEQ/L (98-107); CREATININE FOR GFR 0.42 MG/DL (0.55-1.02); GLOMERULAR FILTRATION RATE > 60.0 (>32); GLUCOSE, FASTING 108 MG/DL (83-110); POTASSIUM SERUM 4.4 MEQ/L (3.5-5.1); SODIUM LEVEL 136 MEQ/L (136-145)
[2017-05-21] MEDS: MOM 30ML SUSPENSION UDC PO SCH (09:00)
[2017-05-21] MEDS: MIRALAX *UNIT DOSE* 17GM PACKET PO SCH (09:00)
[2017-05-21] MEDS: PRIMIDONE 250 MG TAB PO SCH ×2 (10:51→20:49)
[2017-05-21] MEDS: SENOKOT S TAB PO SCH ×2 (10:51→20:49)
[2017-05-21] MEDS: CYANOCOBALAMIN 250 MCG TABLET PO SCH (10:52)
[2017-05-21] MEDS: MEMANTINE 5MG TABLET (NAMENDA) PO SCH ×2 (10:52→20:49)
[2017-05-21] MEDS: MESALAMINE 250 MG CR CAP PO SCH ×3 (10:52→20:48)
[2017-05-21] MEDS: PROPRANOLOL 80 MG LA CAP PO SCH (10:52)
--- NOTE | 2017-05-21 11:37 | IPNPDOC ---
Text Note Date of Service The patient was seen on 05/21/17. NOTE Subjective: Patient seen and examined at bedside. No acute overnight events reported. Patient denies any new medical complaints today. Objective: General: NAD, lying comfortably in bed, elderly HEENT: NC Lungs: CTA B/L Heart: +S1S2, RRR Abd: soft, NT, +BS Ext: no edema 86 yo female for mechanical fall resulting in acute SDH and left hip fx s/p cephalomedullary nail fixation. 1. SDH - management as per neurosurgery 2. Hip fx - follow as per ortho - anticoagulation as per ortho/neurosurg 3. HTN - management as per neurosurg 4. Anemia - s/p 2 units PRBC - stable - continue to follow 5. CHF - compensated 6. Crohn's - follows with Dr. Villarreal - last visit April 2017 - continue Pentasa 5. DVT prophylaxis - as per ortho/neurosurg Dispo: Anticipating discharge to ARU in 24-48 hours. VS,Fishbone, I+O VS, Fishbone, I+O Laboratory Tests 05/21/17 06:29 Red Blood Count 3.25 L, Mean Corpuscular Volume 90.8, Mean Corpuscular Hemoglobin 30.2, Mean Corpuscular Hemoglobin Concent 33.2, Red Cell Distribution Width 15.7 H, Calcium Level 7.1 L Vital Signs Date Time Temp Pulse Resp B/P (MAP) Pulse Ox O2 Delivery O2 Flow Rate FiO2 05/21/17 10:52 82 129/77 05/21/17 10:51 18 05/21/17 06:00 98.2 94 Room Air 05/17/17 16:10 2.0 I&O- Last 24 Hours up to 6 AM 05/22/17 06:00 Intake Total 240 ml Output Total 600 ml Balance -360 ml GARY ALICEA MD May 21, 2017 11:37
[2017-05-21 14:00] VITALS: BP 132/60
[2017-05-21] MEDS: POLYVINYL ALCOHOL OPHTH SOLN 15 ML(LIQUITEARS) OU PRN (18:22)
[2017-05-21] MEDS: ACETAMINOPHEN 500 MG TAB PO PRN (20:54)
[2017-05-21 22:00] VITALS: BP 151/81
[2017-05-22] MEDS: diphenhydrAMINE 25 MG CAP PO PRN ×3 (01:49→21:05)
[2017-05-22] MEDS: ACETAMINOPHEN 500 MG TAB PO PRN ×3 (04:03→21:09)
[2017-05-22 06:00] VITALS: BP 120/68
[2017-05-22 06:48] LABS: MEAN CORPUSCULAR HEMOGLOBIN 30.7 pg (27.0-33.0); MEAN CORPUSCULAR VOLUME 93.1 fl (80.0-96.0); PLATELET COUNT, AUTOMATED 180 10^3/uL (150-450); RED CELL DISTRIBUTION WIDTH 15.7 % (11.5-14.5)
[2017-05-22 07:10] LABS: ANION GAP 6 MEQ/L (8-16); BLOOD UREA NITROGEN 8 MG/DL (7-18); CALCIUM LEVEL 7.4 MG/DL (8.8-10.2); CARBON DIOXIDE LEVEL 28 MEQ/L (21-32); CHLORIDE LEVEL 104 MEQ/L (98-107); CREATININE FOR GFR 0.35 MG/DL (0.55-1.02); GLOMERULAR FILTRATION RATE > 60.0 (>32); GLUCOSE, FASTING 99 MG/DL (83-110); POTASSIUM SERUM 4.4 MEQ/L (3.5-5.1); SODIUM LEVEL 138 MEQ/L (136-145)
[2017-05-22] MEDS ORDERED: TRAM50TA2 PO (08:47)
[2017-05-22] MEDS: MOM 30ML SUSPENSION UDC PO SCH (08:57)
[2017-05-22] MEDS: SENOKOT S TAB PO SCH ×2 (08:57→21:00)
[2017-05-22] MEDS: CYANOCOBALAMIN 250 MCG TABLET PO SCH (08:57)
[2017-05-22] MEDS: PROPRANOLOL 80 MG LA CAP PO SCH (08:57)
[2017-05-22] MEDS: PRIMIDONE 250 MG TAB PO SCH ×2 (08:57→21:05)
[2017-05-22] MEDS: MEMANTINE 5MG TABLET (NAMENDA) PO SCH ×2 (08:57→21:06)
[2017-05-22] MEDS: POLYVINYL ALCOHOL OPHTH SOLN 15 ML(LIQUITEARS) OU PRN (08:58)
[2017-05-22] MEDS: MIRALAX *UNIT DOSE* 17GM PACKET PO SCH (08:58)
[2017-05-22] MEDS: MESALAMINE 250 MG CR CAP PO SCH ×3 (08:58→21:06)
[2017-05-22 14:00] VITALS: BP 112/58
[2017-05-22 22:00] VITALS: BP 129/60
[2017-05-23] MEDS: ACETAMINOPHEN 500 MG TAB PO PRN (05:29)
[2017-05-23] MEDS: diphenhydrAMINE 25 MG CAP PO PRN (05:29)
[2017-05-23 06:00] VITALS: BP 117/58
[2017-05-23 08:31] VITALS: BP 117/58
[2017-05-23] MEDS: PROPRANOLOL 80 MG LA CAP PO SCH (08:31)
[2017-05-23] MEDS: CYANOCOBALAMIN 250 MCG TABLET PO SCH (08:32)
[2017-05-23] MEDS: MESALAMINE 250 MG CR CAP PO SCH (08:32)
[2017-05-23] MEDS: MIRALAX *UNIT DOSE* 17GM PACKET PO SCH (08:32)
[2017-05-23] MEDS: PRIMIDONE 250 MG TAB PO SCH (08:32)
[2017-05-23] MEDS: MEMANTINE 5MG TABLET (NAMENDA) PO SCH (08:32)
[2017-05-23] MEDS: SENOKOT S TAB PO SCH (08:33)
[2017-05-23] MEDS: MOM 30ML SUSPENSION UDC PO SCH (08:33)
[2017-05-23] MEDS ORDERED: HYDROCORTISONE 1% CREAM 30 GM TOP SCH (09:00)
--- NOTE | 2017-05-30 19:26 | DS.PDOC ---
Discharge Summary General Date of Admission May 15, 2017 at 16:45 Date of Discharge 05/22/17 Attending Physician: OLIVIA LÓPEZ MD Specialist/Consultants Involve: GARY ALICEA MD Specialist/Consultants Involve orthopedicsevelyn Discharge Summary PROCEDURES PERFORMED DURING STAY: Left hip cephalomedullary nail fixation DISCHARGE DIAGNOSES: 1. SDH 2. Left Hip Fx s/p . 3. Crohns 4. HTN 5. acute blood loss post op anemia 6. CHF COMPLICATIONS/CHIEF COMPLAINT: L Acute Subdural Hematoma Frontal. HISTORY OF PRESENT ILLNESS: 86 yo female admitted to neurosurgical service for subdural hematoma s/p mechanical fall. Hospitalist consulted for medical management. Patient also seen in consultation by orthopedics for left hip fracture, and underwent cephalomedullary nail fixation. Post op complication of acute blood loss anemia requiring transfusion of PRBC. Hospital stay otherwise unremarkable with the exception of mild electrolyte abnormalities, and patient transferred to acute rehab unit. DISCHARGE MEDICATIONS: Please see below. ALLERGIES: Please see below. PHYSICAL EXAMINATION ON DISCHARGE: VITAL SIGNS: Please see below. GENERAL: NAD HEENT: NC, EOMI NECK: supple CARDIOVASCULAR EXAMINATION: +S1S2, RRR RESPIRATORY EXAMINATION: CTA B/L ABDOMINAL EXAMINATION: soft, NT, +BS EXTREMITIES: no edema PSYCHIATRIC EXAMINATION: AAOx3 LABORATORY DATA: Please see below. PROGNOSIS: ACTIVITY: As per ARU DIET: 2 gram sodium DISPOSITION: 62 D/T Rehab Facility ITEMS TO FOLLOWUP ON ON OUTPATIENT: 1. . 2. . 3. . DISCHARGE CONDITION: [Stable]. TIME SPENT ON DISCHARGE: Greater than 30 minutes. Discharge Medications Scheduled Calcium Carbonate (Calcium) 600 Mg Tab, 600 MG PO TID, (Reported) TAKES AT 0900, 1500, AND 2100 Cholecalciferol (D 400) 400 Unit Tab, 600 UNIT PO BID, (Reported) Cyanocobalamin (Vitamin B 12) 250 Mcg Lidia, 250 MCG PO DAILY, (Reported) Magnesium Chloride (Mag64) 64 Mg Tabcr, 64 MG PO BID, (Reported) Memantine Hydrochloride (Namenda Xr) 28 Mg Cap, 28 MG PO DAILY, (Reported) Mesalamine (Pentasa) 500 Mg Cap, 500 MG PO TID, (Reported) TAKES AT 0900, 1500, AND 2100 Multivitamins *[facility] STOCKED* (Thera M Plus *[facility] STOCKED*) 1 Tab Tab, 1 TAB PO DAILY, (Reported) Primidone (Primidone) 250 Mg Tab, 250 MG PO QAM, (Reported) Primidone (Primidone) 250 Mg Tab, 125 MG PO QPM, (Reported) PATIENT TAKES AT 1500 Propranolol Hcl (Inderal LA) 160 Mg Cap, 160 MG PO DAILY, (Reported) Raloxifene Hydrochloride (Raloxifene Hydrochloride) 60 Mg Tab, 60 MG PO DAILY, ( Reported) Scheduled PRN Tramadol HCl (Tramadol HCl) 50 Mg Tab, 1-2 TAB PO Q4H PRN for PAIN Allergies Coded Allergies: Meperidine (Verified Adverse Reaction, Mild, HALLUCINATIONS, 09/06/12) GARY ALICEA MD May 30, 2017 19:26
--- NOTE | 2017-05-30 21:04 | DSES ---
ADDENDUM TO DISCHARGE SUMMARY FOR 05/22/2017 DICTATED BY: Pastora Ibrahim MD 05/30/2017 7:25 pm Discharge summary was performed on 05/22/2017 with anticipation for the patient's transfer to ARU. However, the patient was not able to transfer service on the , therefore, the patient's stayed overnight in [facility] [place]. Prior to the patient's transfer to ARU on 05/23/2017, all the medications reviewed and finalized and case discussed with involved consultants and primary team.
== END 2017-05-23 14:35 | DRG 956 ==
LOC: EDBD 13:38 → M ED 15:27 → M ED INP 16:45 → M ICU 22:39 → M PCU 05-16 20:38 → M MS5PR 05-17 18:37
PROVIDERS: ADMIT Neurological Surgery; ATTEND Internal Medicine
PROC: 0QS706Z Reposition Left Upper Femur with Intramedullary Internal Fixation Device, Open Approach (ICD-10-PCS; principal; 2017-05-16 15:00)
PROC: 30233N1 Transfusion of Nonautologous Red Blood Cells into Peripheral Vein, Percutaneous Approach (ICD-10-PCS; 2017-05-19)
DX: S06.5X0A Traumatic subdural hemorrhage without loss of consciousness, initial encounter (principal); S72.145A Nondisplaced intertrochanteric fracture of left femur, initial encounter for closed fracture; D62 Acute posthemorrhagic anemia; K50.90 Crohn's disease, unspecified, without complications; W11.XXXA Fall on and from ladder, initial encounter; Y92.009 Unspecified place in unspecified non-institutional (private) residence as the place of occurrence of the external cause; I11.9 Hypertensive heart disease without heart failure; Z79.899 Other long term (current) drug therapy; Z88.8 Allergy status to other drugs, medicaments and biological substances; Z79.82 Long term (current) use of aspirin; F03.90 Unspecified dementia, unspecified severity, without behavioral disturbance, psychotic disturbance, mood disturbance, and anxiety; E53.8 Deficiency of other specified B group vitamins; M81.0 Age-related osteoporosis without current pathological fracture; R25.1 Tremor, unspecified

== ENCOUNTER 2017-05-23 14:40 | Inpatient (IN) | payer MEDICARE ==
[~2017-05-23 14:40] MED LIST: MOM 30ML SUSPENSION UDC PO
[2017-05-23] MEDS: LORATADINE 10 MG TAB PO (17:34)
[2017-05-23] MEDS: MESALAMINE 250 MG CR CAP PO ×2 (17:34→20:43)
[2017-05-23 18:47] LABS: APPEARANCE, URINE CLEAR (CLEAR); BACTERIA, URINE AUTO NEGATIVE (NEGATIVE); BILIRUBIN, URINE AUTO NEGATIVE (NEGATIVE); BLOOD, URINE BLOOD NEGATIVE (NEGATIVE); COLOR, URINE STRAW (YELLOW); GLUCOSE, URINE (UA) AUTO NEGATIVE (NEGATIVE); KETONE, URINE AUTO NEGATIVE (NEGATIVE); LEUKOCYTE ESTERASE, URINE AUTO NEGATIVE (NEGATIVE); NITRITE, URINE AUTO NEGATIVE (NEGATIVE); PROTEIN, URINE AUTO NEGATIVE (NEGATIVE); RBC, URINE AUTO 1 /HPF (0-3); SPECIFIC GRAVITY URINE AUTO 1.006 (1.002-1.035); SQUAMOUS EPITHELIAL CELL UR AU 1 /HPF (0-6); UROBILINOGEN, URINE AUTO 0.2 mg/dL (0.0-2.0); WBC, URINE AUTO 5 /HPF (0-3)
[2017-05-23] MEDS: ACETAMINOPHEN TAB 650MG DOSE (2X325MG) PO (19:15)
[2017-05-23] MEDS: MEMANTINE 5MG TABLET (NAMENDA) PO (20:43)
[2017-05-23] MEDS: SENOKOT S TAB PO (20:43)
[2017-05-23] MEDS: PRIMIDONE 125MG PER 1/2 TABLET PO (20:43)
[2017-05-23] MEDS: HYDROCORTISONE 1% CREAM 30 GM TOP (21:00)
[2017-05-24] MEDS: ACETAMINOPHEN TAB 650MG DOSE (2X325MG) PO ×2 (03:06→09:36)
[2017-05-24] MEDS: POLYVINYL ALCOHOL OPHTH SOLN 15 ML(LIQUITEARS) OU (05:57)
[2017-05-24 07:15] LABS: HEMATOCRIT 30.8 % (36.0-47.0); HEMOGLOBIN 10.2 g/dl (12.0-16.0); MEAN CORPUSCULAR HEMOGLOBIN 30.7 pg (27.0-33.0); MEAN CORPUSCULAR HGB CONC 33.1 g/dl (32.0-36.5); MEAN CORPUSCULAR VOLUME 92.8 fl (80.0-96.0); PLATELET COUNT, AUTOMATED 269 10^3/uL (150-450); RED BLOOD COUNT 3.32 10^6/uL (4.00-5.40); WHITE BLOOD COUNT 15.7 10^3/uL (4.0-10.0)
[2017-05-24 07:22] LABS: ADD MANUAL DIFFER YES; BLASTS POS FLAG; DIFF SLIDE NUMBER 86; POSITIVE DIFF POS FLAG; POSITIVE MORPH POS FLAG
[2017-05-24 07:36] LABS: ALBUMIN 2.3 GM/DL (3.2-5.2); ALBUMIN/GLOBULIN RATIO 0.88 (1.00-1.93); ALKALINE PHOSPHATASE 75 U/L (45-117); ALT/SGPT 37 U/L (12-78); ANION GAP 6 MEQ/L (8-16); AST/SGOT 24 U/L (7-37); BILIRUBIN,TOTAL 0.5 MG/DL (0.2-1.0); BLOOD UREA NITROGEN 8 MG/DL (7-18); CALCIUM LEVEL 7.7 MG/DL (8.8-10.2); CARBON DIOXIDE LEVEL 29 MEQ/L (21-32); CHLORIDE LEVEL 106 MEQ/L (98-107); GLOMERULAR FILTRATION RATE > 60.0 (>32); GLUCOSE, FASTING 106 MG/DL (83-110); POTASSIUM SERUM 4.4 MEQ/L (3.5-5.1); SODIUM LEVEL 141 MEQ/L (136-145); TOTAL PROTEIN 4.9 GM/DL (6.4-8.2)
[2017-05-24 07:47] LABS: EOSINOPHILS 4 % (0-5); LYMPHOCYTES 19 % (16-52); MONOCYTES 1 % (0-8); NEUTROPHILS 76 % (35-75); PLATELET ESTIMATE NORMAL (NORMAL)
[2017-05-24] MEDS: CYANOCOBALAMIN 250 MCG TABLET PO (08:38)
[2017-05-24] MEDS: MEMANTINE 5MG TABLET (NAMENDA) PO ×2 (08:38→21:00)
[2017-05-24] MEDS: SENOKOT S TAB PO ×2 (08:38→21:00)
[2017-05-24] MEDS: MESALAMINE 250 MG CR CAP PO ×3 (08:38→21:00)
[2017-05-24] MEDS: PRIMIDONE 250 MG TAB PO (08:38)
[2017-05-24] MEDS: LORATADINE 10 MG TAB PO (08:38)
[2017-05-24] MEDS: MIRALAX *UNIT DOSE* 17GM PACKET PO (08:39)
[2017-05-24] MEDS: HYDROCORTISONE 1% CREAM 30 GM TOP ×2 (08:40→21:01)
[2017-05-24] MEDS: PRIMIDONE 125MG PER 1/2 TABLET PO (21:00)
[2017-05-24] MEDS: traMADol 50 MG TAB PO (21:00)
[2017-05-25] MEDS: ACETAMINOPHEN TAB 650MG DOSE (2X325MG) PO (04:26)
[2017-05-25 07:35] LABS: HEMATOCRIT 30.5 % (36.0-47.0); HEMOGLOBIN 10.3 g/dl (12.0-16.0); MEAN CORPUSCULAR HEMOGLOBIN 31.5 pg (27.0-33.0); MEAN CORPUSCULAR HGB CONC 33.8 g/dl (32.0-36.5); MEAN CORPUSCULAR VOLUME 93.3 fl (80.0-96.0); PLATELET COUNT, AUTOMATED 278 10^3/uL (150-450); RED BLOOD COUNT 3.27 10^6/uL (4.00-5.40); RED CELL DISTRIBUTION WIDTH 15.9 % (11.5-14.5)
[2017-05-25 07:42] LABS: ADD MANUAL DIFFER YES; DIFF SLIDE NUMBER 77; POSITIVE DIFF POS FLAG; WHITE BLOOD COUNT 16.1 10^3/uL (4.0-10.0)
[2017-05-25 08:08] LABS: ATYPICAL LYMPH 2 % (0-5); LYMPHOCYTES 32 % (16-52); MONOCYTES 6 % (0-8); NEUTROPHILS 60 % (35-75); PLATELET ESTIMATE NORMAL (NORMAL)
[2017-05-25 08:11] LABS: ALBUMIN 2.5 GM/DL (3.2-5.2); ALKALINE PHOSPHATASE 78 U/L (45-117); ALT/SGPT 28 U/L (12-78); ANION GAP 7 MEQ/L (8-16); AST/SGOT 19 U/L (7-37); BILIRUBIN,TOTAL 0.6 MG/DL (0.2-1.0); BLOOD UREA NITROGEN 8 MG/DL (7-18); CALCIUM LEVEL 7.8 MG/DL (8.8-10.2); CARBON DIOXIDE LEVEL 28 MEQ/L (21-32); CHLORIDE LEVEL 105 MEQ/L (98-107); CREATININE FOR GFR 0.36 MG/DL (0.55-1.02); FERRITIN 115 NG/ML (8-252); GLOMERULAR FILTRATION RATE > 60.0 (>32); GLUCOSE, FASTING 106 MG/DL (83-110); IRON (FE) 56 UG/DL (50-170); PERCENT SATURATION 24.7 % (13.2-45.0); SODIUM LEVEL 140 MEQ/L (136-145); TOTAL IRON BINDING CAPACITY 227 UG/DL (250-450)
[2017-05-25] MEDS: MESALAMINE 250 MG CR CAP PO ×3 (08:32→21:01)
[2017-05-25] MEDS: CYANOCOBALAMIN 250 MCG TABLET PO (08:32)
[2017-05-25] MEDS: MEMANTINE 5MG TABLET (NAMENDA) PO ×2 (08:32→21:01)
[2017-05-25] MEDS: LORATADINE 10 MG TAB PO (08:32)
[2017-05-25] MEDS: HYDROCORTISONE 1% CREAM 30 GM TOP ×2 (08:33→21:02)
[2017-05-25] MEDS: PRIMIDONE 250 MG TAB PO (08:35)
[2017-05-25] MEDS: SENOKOT S TAB PO ×2 (09:00→21:00)
[2017-05-25] MEDS: MIRALAX *UNIT DOSE* 17GM PACKET PO (09:00)
[2017-05-25] MEDS: traMADol 50 MG TAB PO ×3 (09:45→23:09)
[2017-05-25 14:32] LABS: FOLATE 14.6 NG/ML (>5.4); VITAMIN B12 LEVEL 821 PG/ML (247-911)
[2017-05-25] MEDS: POLYVINYL ALCOHOL OPHTH SOLN 15 ML(LIQUITEARS) OU (21:01)
[2017-05-25] MEDS: PRIMIDONE 125MG PER 1/2 TABLET PO (21:01)
[2017-05-26] MEDS: traMADol 50 MG TAB PO ×3 (06:56→20:22)
[2017-05-26] MEDS: PRIMIDONE 250 MG TAB PO (08:24)
[2017-05-26] MEDS: SENOKOT S TAB PO ×2 (08:25→20:22)
[2017-05-26] MEDS: MESALAMINE 250 MG CR CAP PO ×3 (08:25→20:22)
[2017-05-26] MEDS: HYDROCORTISONE 1% CREAM 30 GM TOP (08:25)
[2017-05-26] MEDS: MEMANTINE 5MG TABLET (NAMENDA) PO ×2 (08:25→20:21)
[2017-05-26] MEDS: CYANOCOBALAMIN 250 MCG TABLET PO (08:25)
[2017-05-26] MEDS: LORATADINE 10 MG TAB PO (08:25)
[2017-05-26] MEDS: MIRALAX *UNIT DOSE* 17GM PACKET PO (08:25)
[2017-05-26] MEDS: ACETAMINOPHEN TAB 650MG DOSE (2X325MG) PO (10:47)
[2017-05-26] MEDS: LevoFLOXacin 250 MG TABLET PO (10:48)
[2017-05-26] MEDS: PRIMIDONE 125MG PER 1/2 TABLET PO (20:21)
[2017-05-27] MEDS: traMADol 50 MG TAB PO ×2 (05:16→12:46)
[2017-05-27] MEDS: LevoFLOXacin 250 MG TABLET PO (05:17)
[2017-05-27] MEDS: POLYVINYL ALCOHOL OPHTH SOLN 15 ML(LIQUITEARS) OU ×2 (05:17→20:52)
[2017-05-27 06:45] LABS: HEMATOCRIT 30.9 % (36.0-47.0); HEMOGLOBIN 10.3 g/dl (12.0-16.0); MEAN CORPUSCULAR HEMOGLOBIN 31.7 pg (27.0-33.0); MEAN CORPUSCULAR HGB CONC 33.3 g/dl (32.0-36.5); MEAN CORPUSCULAR VOLUME 95.1 fl (80.0-96.0); PLATELET COUNT, AUTOMATED 293 10^3/uL (150-450); RED BLOOD COUNT 3.25 10^6/uL (4.00-5.40); RED CELL DISTRIBUTION WIDTH 16.3 % (11.5-14.5); WHITE BLOOD COUNT 13.2 10^3/uL (4.0-10.0)
[2017-05-27] MEDS: MEMANTINE 5MG TABLET (NAMENDA) PO ×2 (08:24→20:45)
[2017-05-27] MEDS: SENOKOT S TAB PO ×2 (08:24→20:46)
[2017-05-27] MEDS: CYANOCOBALAMIN 250 MCG TABLET PO (08:24)
[2017-05-27] MEDS: LORATADINE 10 MG TAB PO (08:24)
[2017-05-27] MEDS: PRIMIDONE 250 MG TAB PO (08:24)
[2017-05-27] MEDS: MESALAMINE 250 MG CR CAP PO ×3 (08:24→20:45)
[2017-05-27] MEDS: ACETAMINOPHEN TAB 650MG DOSE (2X325MG) PO ×2 (08:25→20:45)
[2017-05-27] MEDS: PRIMIDONE 125MG PER 1/2 TABLET PO (20:45)
[2017-05-28] MEDS: traMADol 50 MG TAB PO ×3 (04:29→17:34)
[2017-05-28] MEDS: LevoFLOXacin 250 MG TABLET PO (05:07)
[2017-05-28 06:32] LABS: HEMATOCRIT 32.5 % (36.0-47.0); HEMOGLOBIN 10.7 g/dl (12.0-16.0); MEAN CORPUSCULAR HEMOGLOBIN 31.1 pg (27.0-33.0); MEAN CORPUSCULAR HGB CONC 32.9 g/dl (32.0-36.5); MEAN CORPUSCULAR VOLUME 94.5 fl (80.0-96.0); PLATELET COUNT, AUTOMATED 303 10^3/uL (150-450); RED BLOOD COUNT 3.44 10^6/uL (4.00-5.40); RED CELL DISTRIBUTION WIDTH 16.3 % (11.5-14.5); WHITE BLOOD COUNT 13.3 10^3/uL (4.0-10.0)
[2017-05-28] MEDS: LORATADINE 10 MG TAB PO (08:22)
[2017-05-28] MEDS: CYANOCOBALAMIN 250 MCG TABLET PO (08:22)
[2017-05-28] MEDS: SENOKOT S TAB PO ×2 (08:22→21:02)
[2017-05-28] MEDS: MESALAMINE 250 MG CR CAP PO ×3 (08:22→21:01)
[2017-05-28] MEDS: MEMANTINE 5MG TABLET (NAMENDA) PO ×2 (08:22→21:02)
[2017-05-28] MEDS: PRIMIDONE 250 MG TAB PO (08:22)
[2017-05-28] MEDS: ACETAMINOPHEN TAB 650MG DOSE (2X325MG) PO ×2 (08:24→21:02)
[2017-05-28] MEDS: PRIMIDONE 125MG PER 1/2 TABLET PO (21:02)
[2017-05-29] MEDS: traMADol 50 MG TAB PO ×3 (01:20→20:58)
[2017-05-29] MEDS: LevoFLOXacin 250 MG TABLET PO (06:53)
[2017-05-29] MEDS: ACETAMINOPHEN TAB 650MG DOSE (2X325MG) PO (06:53)
[2017-05-29] MEDS: LORATADINE 10 MG TAB PO (08:26)
[2017-05-29] MEDS: SENOKOT S TAB PO ×2 (08:26→20:57)
[2017-05-29] MEDS: MEMANTINE 5MG TABLET (NAMENDA) PO ×2 (08:26→20:56)
[2017-05-29] MEDS: CYANOCOBALAMIN 250 MCG TABLET PO (08:26)
[2017-05-29] MEDS: MESALAMINE 250 MG CR CAP PO ×3 (08:26→20:57)
[2017-05-29] MEDS: PRIMIDONE 250 MG TAB PO (08:27)
[2017-05-29 08:28] LABS: HEMATOCRIT 31.7 % (36.0-47.0); HEMOGLOBIN 10.3 g/dl (12.0-16.0); MEAN CORPUSCULAR HGB CONC 32.5 g/dl (32.0-36.5); MEAN CORPUSCULAR VOLUME 95.5 fl (80.0-96.0); PLATELET COUNT, AUTOMATED 300 10^3/uL (150-450); RED BLOOD COUNT 3.32 10^6/uL (4.00-5.40); RED CELL DISTRIBUTION WIDTH 16.6 % (11.5-14.5); WHITE BLOOD COUNT 13.3 10^3/uL (4.0-10.0)
[2017-05-29] MEDS: POLYVINYL ALCOHOL OPHTH SOLN 15 ML(LIQUITEARS) OU (16:06)
[2017-05-29] MEDS: PRIMIDONE 125MG PER 1/2 TABLET PO (20:57)
[2017-05-30] MEDS: traMADol 50 MG TAB PO ×2 (04:34→13:01)
[2017-05-30] MEDS: LevoFLOXacin 250 MG TABLET PO (06:25)
[2017-05-30 06:39] LABS: HEMATOCRIT 31.4 % (36.0-47.0); HEMOGLOBIN 10.4 g/dl (12.0-16.0); MEAN CORPUSCULAR HEMOGLOBIN 31.2 pg (27.0-33.0); MEAN CORPUSCULAR HGB CONC 33.1 g/dl (32.0-36.5); MEAN CORPUSCULAR VOLUME 94.3 fl (80.0-96.0); PLATELET COUNT, AUTOMATED 297 10^3/uL (150-450); RED BLOOD COUNT 3.33 10^6/uL (4.00-5.40); RED CELL DISTRIBUTION WIDTH 16.4 % (11.5-14.5); WHITE BLOOD COUNT 12.8 10^3/uL (4.0-10.0)
[2017-05-30] MEDS: MESALAMINE 250 MG CR CAP PO ×3 (08:37→20:21)
[2017-05-30] MEDS: SENOKOT S TAB PO ×2 (08:37→20:21)
[2017-05-30] MEDS: LORATADINE 10 MG TAB PO (08:37)
[2017-05-30] MEDS: PRIMIDONE 250 MG TAB PO (08:37)
[2017-05-30] MEDS: CYANOCOBALAMIN 250 MCG TABLET PO (08:37)
[2017-05-30] MEDS: ACETAMINOPHEN TAB 650MG DOSE (2X325MG) PO ×2 (08:37→20:22)
[2017-05-30] MEDS: MEMANTINE 5MG TABLET (NAMENDA) PO ×2 (08:37→20:21)
[2017-05-30] MEDS: POLYVINYL ALCOHOL OPHTH SOLN 15 ML(LIQUITEARS) OU (14:15)
[2017-05-30] MEDS: PRIMIDONE 125MG PER 1/2 TABLET PO (20:21)
[2017-05-31] MEDS: traMADol 50 MG TAB PO ×3 (01:49→16:15)
[2017-05-31] MEDS: LevoFLOXacin 250 MG TABLET PO (06:19)
[2017-05-31] MEDS: MESALAMINE 250 MG CR CAP PO ×3 (08:33→20:16)
[2017-05-31] MEDS: PRIMIDONE 250 MG TAB PO (08:33)
[2017-05-31] MEDS: MEMANTINE 5MG TABLET (NAMENDA) PO ×2 (08:34→20:17)
[2017-05-31] MEDS: LORATADINE 10 MG TAB PO (08:34)
[2017-05-31] MEDS: SENOKOT S TAB PO ×2 (08:34→20:17)
[2017-05-31] MEDS: CYANOCOBALAMIN 250 MCG TABLET PO (08:34)
[2017-05-31] MEDS: PRIMIDONE 125MG PER 1/2 TABLET PO (20:16)
[2017-05-31] MEDS: ACETAMINOPHEN TAB 650MG DOSE (2X325MG) PO (20:18)
[2017-05-31] MEDS: POLYVINYL ALCOHOL OPHTH SOLN 15 ML(LIQUITEARS) OU (20:22)
[2017-06-01 00:10] LABS: PHENOBARBITAL (PRIMIDONE) 11 ug/mL (15-40); PRIMIDONE, SERUM 5.7 ug/mL (5.0-12.0)
[2017-06-01] MEDS: LevoFLOXacin 250 MG TABLET PO (06:18)
[2017-06-01] MEDS: traMADol 50 MG TAB PO ×2 (06:18→20:24)
[2017-06-01] MEDS: LORATADINE 10 MG TAB PO (08:32)
[2017-06-01] MEDS: MEMANTINE 5MG TABLET (NAMENDA) PO ×2 (08:32→20:23)
[2017-06-01] MEDS: PRIMIDONE 125MG PER 1/2 TABLET PO (08:32)
[2017-06-01] MEDS: CYANOCOBALAMIN 250 MCG TABLET PO (08:32)
[2017-06-01] MEDS: MESALAMINE 250 MG CR CAP PO ×3 (08:33→20:23)
[2017-06-01] MEDS: SENOKOT S TAB PO ×2 (08:33→20:24)
[2017-06-01] MEDS: PRIMIDONE 250 MG TAB PO ×2 (08:35→20:24)
[2017-06-01] MEDS: ACETAMINOPHEN TAB 650MG DOSE (2X325MG) PO ×2 (11:33→23:34)
[2017-06-01] MEDS: POLYVINYL ALCOHOL OPHTH SOLN 15 ML(LIQUITEARS) OU (15:53)
[2017-06-02] MEDS: traMADol 50 MG TAB PO ×2 (06:30→16:54)
[2017-06-02] MEDS: CYANOCOBALAMIN 250 MCG TABLET PO (08:36)
[2017-06-02] MEDS: MESALAMINE 250 MG CR CAP PO ×3 (08:36→21:08)
[2017-06-02] MEDS: LORATADINE 10 MG TAB PO (08:36)
[2017-06-02] MEDS: SENOKOT S TAB PO ×2 (08:36→21:11)
[2017-06-02] MEDS: PRIMIDONE 250 MG TAB PO ×2 (08:36→21:10)
[2017-06-02] MEDS: MEMANTINE 5MG TABLET (NAMENDA) PO ×2 (08:36→21:10)
[2017-06-02] MEDS: ANALGESIC BALM CRM 120 GM TOP ×4 (09:00→21:11)
[2017-06-02] MEDS: ACETAMINOPHEN TAB 650MG DOSE (2X325MG) PO (21:08)
[2017-06-02] MEDS: POLYVINYL ALCOHOL OPHTH SOLN 15 ML(LIQUITEARS) OU (21:12)
[2017-06-03] MEDS: MESALAMINE 250 MG CR CAP PO ×3 (08:51→21:05)
[2017-06-03] MEDS: CYANOCOBALAMIN 250 MCG TABLET PO (08:51)
[2017-06-03] MEDS: PRIMIDONE 250 MG TAB PO ×2 (08:51→21:05)
[2017-06-03] MEDS: LORATADINE 10 MG TAB PO (08:51)
[2017-06-03] MEDS: SENOKOT S TAB PO ×2 (08:51→21:05)
[2017-06-03] MEDS: MEMANTINE 5MG TABLET (NAMENDA) PO ×2 (08:53→21:05)
[2017-06-03] MEDS: ANALGESIC BALM CRM 120 GM TOP ×4 (08:53→21:06)
[2017-06-03] MEDS: ACETAMINOPHEN TAB 650MG DOSE (2X325MG) PO (15:47)
[2017-06-03] MEDS: POLYVINYL ALCOHOL OPHTH SOLN 15 ML(LIQUITEARS) OU (21:06)
[2017-06-04 04:31] LABS: APPEARANCE, URINE CLEAR (CLEAR); BACTERIA, URINE AUTO NEGATIVE (NEGATIVE); BILIRUBIN, URINE AUTO NEGATIVE (NEGATIVE); BLOOD, URINE BLOOD NEGATIVE (NEGATIVE); COLOR, URINE STRAW (YELLOW); GLUCOSE, URINE (UA) AUTO NEGATIVE (NEGATIVE); KETONE, URINE AUTO NEGATIVE (NEGATIVE); LEUKOCYTE ESTERASE, URINE AUTO NEGATIVE (NEGATIVE); MUCUS, URINE SMALL (NEGATIVE); NITRITE, URINE AUTO NEGATIVE (NEGATIVE); PROTEIN, URINE AUTO NEGATIVE (NEGATIVE); RBC, URINE AUTO 1 /HPF (0-3); SPECIFIC GRAVITY URINE AUTO 1.005 (1.002-1.035); SQUAMOUS EPITHELIAL CELL UR AU 1 /HPF (0-6); UROBILINOGEN, URINE AUTO 0.2 mg/dL (0.0-2.0); WBC, URINE AUTO 1 /HPF (0-3)
[2017-06-04] MEDS: PRIMIDONE 250 MG TAB PO ×2 (09:08→21:16)
[2017-06-04] MEDS: LORATADINE 10 MG TAB PO (09:08)
[2017-06-04] MEDS: MESALAMINE 250 MG CR CAP PO ×3 (09:08→21:16)
[2017-06-04] MEDS: MEMANTINE 5MG TABLET (NAMENDA) PO ×2 (09:08→21:16)
[2017-06-04] MEDS: SENOKOT S TAB PO ×2 (09:08→21:16)
[2017-06-04] MEDS: ANALGESIC BALM CRM 120 GM TOP ×4 (09:08→21:18)
[2017-06-04] MEDS: CYANOCOBALAMIN 250 MCG TABLET PO (09:08)
[2017-06-04] MEDS: traMADol 50 MG TAB PO (09:09)
[2017-06-04] MEDS: ACETAMINOPHEN TAB 650MG DOSE (2X325MG) PO (21:17)
[2017-06-05] MEDS: SENOKOT S TAB PO ×2 (08:10→20:33)
[2017-06-05] MEDS: MEMANTINE 5MG TABLET (NAMENDA) PO ×2 (08:10→20:33)
[2017-06-05] MEDS: CYANOCOBALAMIN 250 MCG TABLET PO (08:10)
[2017-06-05] MEDS: PRIMIDONE 250 MG TAB PO ×2 (08:10→20:32)
[2017-06-05] MEDS: POLYVINYL ALCOHOL OPHTH SOLN 15 ML(LIQUITEARS) OU ×2 (08:10→20:34)
[2017-06-05] MEDS: MESALAMINE 250 MG CR CAP PO ×3 (08:10→20:32)
[2017-06-05] MEDS: LORATADINE 10 MG TAB PO (08:10)
[2017-06-05] MEDS: ANALGESIC BALM CRM 120 GM TOP ×4 (08:11→20:35)
[2017-06-05] MEDS: traMADol 50 MG TAB PO ×2 (09:26→20:34)
[2017-06-06 08:13] LABS: HEMATOCRIT 35.5 % (36.0-47.0); HEMOGLOBIN 11.5 g/dl (12.0-16.0); MEAN CORPUSCULAR HEMOGLOBIN 30.9 pg (27.0-33.0); MEAN CORPUSCULAR HGB CONC 32.4 g/dl (32.0-36.5); MEAN CORPUSCULAR VOLUME 95.4 fl (80.0-96.0); PLATELET COUNT, AUTOMATED 238 10^3/uL (150-450); RED BLOOD COUNT 3.72 10^6/uL (4.00-5.40); RED CELL DISTRIBUTION WIDTH 16.1 % (11.5-14.5); WHITE BLOOD COUNT 9.9 10^3/uL (4.0-10.0)
[2017-06-06 08:19] LABS: ALBUMIN 2.8 GM/DL (3.2-5.2); ALBUMIN/GLOBULIN RATIO 0.88 (1.00-1.93); ALKALINE PHOSPHATASE 119 U/L (45-117); ALT/SGPT 17 U/L (12-78); ANION GAP 5 MEQ/L (8-16); AST/SGOT 17 U/L (7-37); BILIRUBIN,TOTAL 0.4 MG/DL (0.2-1.0); BLOOD UREA NITROGEN 8 MG/DL (7-18); CARBON DIOXIDE LEVEL 31 MEQ/L (21-32); CHLORIDE LEVEL 103 MEQ/L (98-107); CREATININE FOR GFR 0.37 MG/DL (0.55-1.02); GLOMERULAR FILTRATION RATE > 60.0 (>32); GLUCOSE, FASTING 94 MG/DL (83-110); PHENOBARBITAL LEVEL 13.9 UG/ML (15.0-40.0); SODIUM LEVEL 139 MEQ/L (136-145)
[2017-06-06] MEDS: PRIMIDONE 250 MG TAB PO ×2 (08:55→21:22)
[2017-06-06] MEDS: ANALGESIC BALM CRM 120 GM TOP ×4 (08:56→21:22)
[2017-06-06] MEDS: LORATADINE 10 MG TAB PO (08:56)
[2017-06-06] MEDS: SENOKOT S TAB PO ×2 (08:56→21:22)
[2017-06-06] MEDS: MESALAMINE 250 MG CR CAP PO ×3 (08:56→21:00)
[2017-06-06] MEDS: MEMANTINE 5MG TABLET (NAMENDA) PO ×2 (08:56→21:22)
[2017-06-06] MEDS: CYANOCOBALAMIN 250 MCG TABLET PO (08:56)
[2017-06-06] MEDS: traMADol 50 MG TAB PO (10:25)
[2017-06-06] MEDS: ACETAMINOPHEN TAB 650MG DOSE (2X325MG) PO (21:23)
[2017-06-06] MEDS: POLYVINYL ALCOHOL OPHTH SOLN 15 ML(LIQUITEARS) OU (21:31)
[2017-06-07] MEDS: PRIMIDONE 250 MG TAB PO (07:59)
[2017-06-07] MEDS: CYANOCOBALAMIN 250 MCG TABLET PO (07:59)
[2017-06-07] MEDS: ACETAMINOPHEN TAB 650MG DOSE (2X325MG) PO (07:59)
[2017-06-07] MEDS: SENOKOT S TAB PO (07:59)
[2017-06-07] MEDS: MEMANTINE 5MG TABLET (NAMENDA) PO (07:59)
[2017-06-07] MEDS: LORATADINE 10 MG TAB PO (07:59)
[2017-06-07] MEDS: MESALAMINE 250 MG CR CAP PO (07:59)
[2017-06-08 00:06] LABS: PHENOBARBITAL (PRIMIDONE) 11 ug/mL (15-40)
== END 2017-06-07 13:10 | disposition home health service (06) | DRG 560 ==
LOC: M PM&R 14:40
DX: S72.142D Displaced intertrochanteric fracture of left femur, subsequent encounter for closed fracture with routine healing (principal); K50.90 Crohn's disease, unspecified, without complications; N39.0 Urinary tract infection, site not specified; I10 Essential (primary) hypertension; I70.209 Unspecified atherosclerosis of native arteries of extremities, unspecified extremity; E53.8 Deficiency of other specified B group vitamins; M81.0 Age-related osteoporosis without current pathological fracture; Z79.899 Other long term (current) drug therapy; F09 Unspecified mental disorder due to known physiological condition; R25.1 Tremor, unspecified; Z88.5 Allergy status to narcotic agent; S06.5X0D Traumatic subdural hemorrhage without loss of consciousness, subsequent encounter; D50.0 Iron deficiency anemia secondary to blood loss (chronic); F02.80 Dementia in other diseases classified elsewhere, unspecified severity, without behavioral disturbance, psychotic disturbance, mood disturbance, and anxiety; I50.9 Heart failure, unspecified; D72.829 Elevated white blood cell count, unspecified; J30.9 Allergic rhinitis, unspecified; B96.1 Klebsiella pneumoniae [K. pneumoniae] as the cause of diseases classified elsewhere; W11.XXXD Fall on and from ladder, subsequent encounter; Y92.009 Unspecified place in unspecified non-institutional (private) residence as the place of occurrence of the external cause

== ENCOUNTER → 2017-06-12 | Outpatient (REF) | payer MEDICARE ==
[2017-06-12 15:25] LABS: HEMATOCRIT 36.9 % (36.0-47.0); MEAN CORPUSCULAR HEMOGLOBIN 31.5 pg (27.0-33.0); MEAN CORPUSCULAR HGB CONC 32.5 g/dl (32.0-36.5); MEAN CORPUSCULAR VOLUME 96.9 fl (80.0-96.0); PLATELET COUNT, AUTOMATED 191 10^3/uL (150-450); RED BLOOD COUNT 3.81 10^6/uL (4.00-5.40); RED CELL DISTRIBUTION WIDTH 15.5 % (11.5-14.5); WHITE BLOOD COUNT 11.2 10^3/uL (4.0-10.0)
== END ==
LOC: M SHH 15:09
DX: D64.9 Anemia, unspecified (principal)
CPT/HCPCS: 85027

== ENCOUNTER → 2017-06-21 | Outpatient (REF) | payer MEDICARE ==
[2017-06-21 10:22] LABS: HEMATOCRIT 37.9 % (36.0-47.0); HEMOGLOBIN 12.4 g/dl (12.0-16.0); MEAN CORPUSCULAR HEMOGLOBIN 31.4 pg (27.0-33.0); MEAN CORPUSCULAR HGB CONC 32.7 g/dl (32.0-36.5); MEAN CORPUSCULAR VOLUME 95.9 fl (80.0-96.0); PLATELET COUNT, AUTOMATED 173 10^3/uL (150-450); RED BLOOD COUNT 3.95 10^6/uL (4.00-5.40); RED CELL DISTRIBUTION WIDTH 15.1 % (11.5-14.5)
[2017-06-21 10:32] LABS: ALBUMIN 3.2 GM/DL (3.2-5.2); ALBUMIN/GLOBULIN RATIO 1.14 (1.00-1.93); ALKALINE PHOSPHATASE 117 U/L (45-117); ALT/SGPT 32 U/L (12-78); ANION GAP 5 MEQ/L (8-16); AST/SGOT 22 U/L (7-37); BILIRUBIN,TOTAL 0.4 MG/DL (0.2-1.0); BLOOD UREA NITROGEN 8 MG/DL (7-18); CALCIUM LEVEL 8.2 MG/DL (8.8-10.2); CARBON DIOXIDE LEVEL 32 MEQ/L (21-32); CHLORIDE LEVEL 102 MEQ/L (98-107); CHOLESTEROL LEVEL 144 MG/DL (<200); CHOLESTEROL RISK RATIO 2.117 (<5); CPK CREATINE PHOSPHOKINASE 47 U/L (26-192); CREATININE FOR GFR 0.48 MG/DL (0.55-1.02); GLOMERULAR FILTRATION RATE > 60.0 (>32); GLUCOSE, FASTING 106 MG/DL (83-110); HDL CHOLESTEROL 68 MG/DL (>40); LDL CHOLESTEROL 54.6 MG/DL (<100); NON-HDL-C 76 MG/DL; POTASSIUM SERUM 4.6 MEQ/L (3.5-5.1); SODIUM LEVEL 139 MEQ/L (136-145); TRIGLYCERIDES LEVEL 107 MG/DL (<150)
[2017-06-21 10:59] LABS: TOTAL 25(OH) VITAMIN D 33.1 NG/ML (30.0-100.0)
== END ==
LOC: M SHH 10:07
DX: E78.00 Pure hypercholesterolemia, unspecified (principal); I10 Essential (primary) hypertension
CPT/HCPCS: 82550

== ENCOUNTER → 2017-06-27 | Outpatient (REF) | payer MEDICARE ==
[2017-06-27 19:45] LABS: ANION GAP 6 MEQ/L (8-16); BLOOD UREA NITROGEN 10 MG/DL (7-18); CALCIUM LEVEL 8.6 MG/DL (8.8-10.2); CARBON DIOXIDE LEVEL 33 MEQ/L (21-32); CHLORIDE LEVEL 98 MEQ/L (98-107); CREATININE FOR GFR 0.45 MG/DL (0.55-1.02); GLOMERULAR FILTRATION RATE > 60.0 (>32); GLUCOSE, FASTING 106 MG/DL (70-100); POTASSIUM SERUM 4.6 MEQ/L (3.5-5.1); SODIUM LEVEL 137 MEQ/L (136-145)
== END ==
LOC: M SHH 17:12
DX: I10 Essential (primary) hypertension (principal)
CPT/HCPCS: 80048

== ENCOUNTER 2017-07-05 13:26 | Emergency (ER) | payer MEDICARE ==
[2017-07-05 14:21] LABS: HEMATOCRIT 38.2 % (36.0-47.0); HEMOGLOBIN 12.5 g/dl (12.0-16.0); MEAN CORPUSCULAR HEMOGLOBIN 31.3 pg (27.0-33.0); MEAN CORPUSCULAR HGB CONC 32.7 g/dl (32.0-36.5); MEAN CORPUSCULAR VOLUME 95.5 fl (80.0-96.0); PLATELET COUNT, AUTOMATED 176 10^3/uL (150-450); RED CELL DISTRIBUTION WIDTH 14.5 % (11.5-14.5); WHITE BLOOD COUNT 12.4 10^3/uL (4.0-10.0)
[2017-07-05 14:27] LABS: ADD MANUAL DIFFER YES; POSITIVE MORPH POS FLAG
[2017-07-05 14:28] LABS: DIFF SLIDE NUMBER 232
[2017-07-05 14:31] LABS: INR 0.98; PROTHROMBIN TIME 13.1 SECONDS (12.4-14.5)
[2017-07-05 14:32] LABS: PARTIAL THROMBOPLASTIN TIME 24.4 SECONDS (26.8-37.9)
[2017-07-05 14:45] LABS: ANION GAP 6 MEQ/L (8-16); BLOOD UREA NITROGEN 8 MG/DL (7-18); C REACTIVE PROTEIN QUANTITATIV 2.73 MG/DL (0.00-0.30); CALCIUM LEVEL 8.6 MG/DL (8.8-10.2); CARBON DIOXIDE LEVEL 30 MEQ/L (21-32); CHLORIDE LEVEL 101 MEQ/L (98-107); CREATININE FOR GFR 0.53 MG/DL (0.55-1.30); GLOMERULAR FILTRATION RATE > 60.0 (>32); GLUCOSE, FASTING 136 MG/DL (70-100); POTASSIUM SERUM 4.3 MEQ/L (3.5-5.1); SODIUM LEVEL 137 MEQ/L (136-145)
[2017-07-05 15:37] LABS: ATYPICAL LYMPH 18 % (0-5); LYMPHOCYTES 18 % (16-52); MONOCYTES 9 % (0-8); NEUTROPHILS 55 % (35-75); PLATELET ESTIMATE NORMAL (NORMAL)
[2017-07-05] MEDS ORDERED: LIDOCAINE 2% MDV 20 ML VIAL As Ordered ×2 (16:26)
[2017-07-05] MEDS ORDERED: ISOVUE-300 61% 50ML VIAL (Q9967) As Ordered ×2 (16:27)
== END 2017-07-05 18:51 | disposition home or self-care (01) ==
LOC: M ED 13:26
DX: I82.401 Acute embolism and thrombosis of unspecified deep veins of right lower extremity (principal); I82.411 Acute embolism and thrombosis of right femoral vein (principal); I10 Essential (primary) hypertension; E78.00 Pure hypercholesterolemia, unspecified; K50.90 Crohn's disease, unspecified, without complications; Z86.73 Personal history of transient ischemic attack (TIA), and cerebral infarction without residual deficits; Z85.828 Personal history of other malignant neoplasm of skin; Z87.81 Personal history of (healed) traumatic fracture; S06.5X0D Traumatic subdural hemorrhage without loss of consciousness, subsequent encounter; W19.XXXD Unspecified fall, subsequent encounter
CPT/HCPCS: 37191; Q9967

== ENCOUNTER → 2017-12-21 | Outpatient (REF) | payer MEDICARE, MEDICAID ==
[2017-12-21 13:19] LABS: ANION GAP 4 MEQ/L (8-16); BLOOD UREA NITROGEN 12 MG/DL (7-18); CALCIUM LEVEL 8.1 MG/DL (8.8-10.2); CARBON DIOXIDE LEVEL 34 MEQ/L (21-32); CHLORIDE LEVEL 102 MEQ/L (98-107); CREATININE FOR GFR 0.48 MG/DL (0.55-1.30); GLOMERULAR FILTRATION RATE > 60.0 (>32); GLUCOSE, FASTING 86 MG/DL (70-100); POTASSIUM SERUM 4.6 MEQ/L (3.5-5.1); SODIUM LEVEL 140 MEQ/L (136-145)
== END ==
LOC: M LABDRAW1 11:58
DX: R60.0 Localized edema (principal)
CPT/HCPCS: 80048

== ENCOUNTER → 2018-01-25 | Outpatient (CLI) | payer MEDICARE, MEDICAID ==
[2018-01-30 00:06] LABS: PHENOBARBITAL (PRIMIDONE) 22 ug/mL (15-40); PRIMIDONE, SERUM 21.2 ug/mL (5.0-12.0)
== END ==
LOC: M WUC 16:48
DX: R25.1 Tremor, unspecified (principal)
CPT/HCPCS: 80188

== ENCOUNTER → 2018-02-08 | Outpatient (CLI) | payer MEDICARE, MEDICAID | LOC: M RAD 12:01 | DX: I82.531 Chronic embolism and thrombosis of right popliteal vein (principal); R25.1 Tremor, unspecified; Z51.81 Encounter for therapeutic drug level monitoring; Z79.899 Other long term (current) drug therapy | CPT/HCPCS: 93971 ==

== ENCOUNTER → 2018-02-08 | Outpatient (CLI) | payer MEDICARE ==
[2018-02-10 10:24] LABS: PHENOBARBITAL (PRIMIDONE) 19 ug/mL (15-40)
== END ==
LOC: M LAB 11:34
DX: Z51.81 Encounter for therapeutic drug level monitoring (principal); Z79.899 Other long term (current) drug therapy; R25.1 Tremor, unspecified

== ENCOUNTER → 2018-02-19 | Outpatient (CLI) | payer MEDICARE | LOC: M WUC 14:21 | DX: M79.671 Pain in right foot (principal) | CPT/HCPCS: 73630 ==

== ENCOUNTER → 2018-03-13 | Outpatient (REF) | payer MEDICARE, MEDICAID ==
[2018-03-13 14:34] LABS: BACTERIA, URINE AUTO NEGATIVE (NEGATIVE); MUCUS, URINE SMALL (NEGATIVE); RBC, URINE AUTO 5 /HPF (0-3); SQUAMOUS EPITHELIAL CELL UR AU 1 /HPF (0-6); WBC, URINE AUTO 6 /HPF (0-3)
== END ==
LOC: M SMT 13:25
DX: N39.41 Urge incontinence (principal)
CPT/HCPCS: 81015

== ENCOUNTER → 2018-03-22 | Outpatient (REF) | payer MEDICARE, MEDICAID ==
[2018-03-22 16:32] LABS: ANION GAP 6 MEQ/L (8-16); BLOOD UREA NITROGEN 9 MG/DL (7-18); CALCIUM LEVEL 8.4 MG/DL (8.8-10.2); CARBON DIOXIDE LEVEL 32 MEQ/L (21-32); CHLORIDE LEVEL 97 MEQ/L (98-107); CREATININE FOR GFR 0.51 MG/DL (0.55-1.30); GLOMERULAR FILTRATION RATE > 60.0 (>32); GLUCOSE, FASTING 92 MG/DL (70-100); POTASSIUM SERUM 4.7 MEQ/L (3.5-5.1); SODIUM LEVEL 135 MEQ/L (136-145)
== END ==
LOC: M LABSMT 13:40
DX: R31.29 Other microscopic hematuria (principal)
CPT/HCPCS: 80048

== ENCOUNTER → 2018-03-29 | Outpatient (CLI) | payer MEDICARE ==
[~2018-03-29] MED LIST changes: +ISOVUE-370 76% 100ML VIAL (Q9967) As Ordered; -MOM 30ML SUSPENSION UDC PO
== END ==
LOC: M RAD 13:18
DX: K80.80 Other cholelithiasis without obstruction (principal); N39.41 Urge incontinence; K50.00 Crohn's disease of small intestine without complications; Z95.828 Presence of other vascular implants and grafts
CPT/HCPCS: Q9967

== ENCOUNTER → 2018-03-29 | Outpatient (CLI) | payer MEDICARE, MEDICAID ==
[2018-03-29 13:49] LABS: HEMATOCRIT 36.1 % (36.0-47.0); HEMOGLOBIN 11.9 g/dl (12.0-15.5); MEAN CORPUSCULAR HEMOGLOBIN 32.4 pg (27.0-33.0); MEAN CORPUSCULAR VOLUME 98.4 fl (80.0-96.0); PLATELET COUNT, AUTOMATED 166 10^3/uL (150-450); RED BLOOD COUNT 3.67 10^6/uL (4.00-5.40); RED CELL DISTRIBUTION WIDTH 13.6 % (11.5-14.5); WHITE BLOOD COUNT 11.1 10^3/uL (4.0-10.0)
[2018-03-29 13:50] LABS: POSITIVE MORPH POS FLAG
[2018-03-29 13:51] LABS: ADD MANUAL DIFFER YES; DIFF SLIDE NUMBER 285
[2018-03-29 14:14] LABS: ALBUMIN 3.1 GM/DL (3.2-5.2); ALKALINE PHOSPHATASE 93 U/L (45-117); ALT/SGPT 31 U/L (12-78); ANION GAP 5 MEQ/L (8-16); AST/SGOT 19 U/L (7-37); BILIRUBIN,TOTAL 0.3 MG/DL (0.2-1.0); BLOOD UREA NITROGEN 12 MG/DL (7-18); CALCIUM LEVEL 8.5 MG/DL (8.8-10.2); CARBON DIOXIDE LEVEL 33 MEQ/L (21-32); CHLORIDE LEVEL 101 MEQ/L (98-107); CREATININE FOR GFR 0.51 MG/DL (0.55-1.30); GLOMERULAR FILTRATION RATE > 60.0 (>32); GLUCOSE, FASTING 107 MG/DL (70-100); POTASSIUM SERUM 4.1 MEQ/L (3.5-5.1); SODIUM LEVEL 139 MEQ/L (136-145); TOTAL PROTEIN 6.2 GM/DL (6.4-8.2)
[2018-03-29 14:20] LABS: FOLATE > 24.0 NG/ML (>5.4)
[2018-03-29 14:50] LABS: ATYPICAL LYMPH 21 % (0-5); LYMPHOCYTES 28 % (16-52); MONOCYTES 5 % (0-8); NEUTROPHILS 46 % (35-75); PLATELET ESTIMATE NORMAL (NORMAL)
== END ==
LOC: M LAB 13:16
DX: K50.00 Crohn's disease of small intestine without complications (principal)

== ENCOUNTER → 2018-04-19 | Outpatient (CLI) | payer MEDICARE ==
[~2018-04-19] MED LIST changes: +ISOVUE-300 61% 50ML VIAL (Q9967) As Ordered; -ISOVUE-370 76% 100ML VIAL (Q9967) As Ordered; +LIDOCAINE 2% MDV 20 ML VIAL As Ordered
== END ==
LOC: M IRPRO 09:43
DX: Z46.89 Encounter for fitting and adjustment of other specified devices (principal); I82.401 Acute embolism and thrombosis of unspecified deep veins of right lower extremity
CPT/HCPCS: 37193

== ENCOUNTER → 2018-05-09 | Outpatient (REF) | payer MEDICARE, MEDICAID ==
[2018-05-09 12:27] LABS: HEMATOCRIT 36.6 % (36.0-47.0); HEMOGLOBIN 11.8 g/dl (12.0-15.5); MEAN CORPUSCULAR HEMOGLOBIN 31.6 pg (27.0-33.0); MEAN CORPUSCULAR HGB CONC 32.2 g/dl (32.0-36.5); MEAN CORPUSCULAR VOLUME 97.9 fl (80.0-96.0); PLATELET COUNT, AUTOMATED 174 10^3/uL (150-450); RED BLOOD COUNT 3.74 10^6/uL (4.00-5.40); WHITE BLOOD COUNT 11.3 10^3/uL (4.0-10.0)
[2018-05-09 12:35] LABS: ALBUMIN 3.4 GM/DL (3.2-5.2); ALBUMIN/GLOBULIN RATIO 1.17 (1.00-1.93); ALKALINE PHOSPHATASE 89 U/L (45-117); ALT/SGPT 30 U/L (12-78); ANION GAP 6 MEQ/L (8-16); AST/SGOT 23 U/L (7-37); BILIRUBIN,TOTAL 0.5 MG/DL (0.2-1.0); BLOOD UREA NITROGEN 12 MG/DL (7-18); CALCIUM LEVEL 8.6 MG/DL (8.8-10.2); CARBON DIOXIDE LEVEL 33 MEQ/L (21-32); CHLORIDE LEVEL 99 MEQ/L (98-107); CHOLESTEROL LEVEL 171 MG/DL (<200); CREATININE FOR GFR 0.55 MG/DL (0.55-1.30); FREE T4 1.09 NG/DL (0.76-1.46); GLOMERULAR FILTRATION RATE > 60.0 (>32); GLUCOSE, FASTING 92 MG/DL (70-100); HDL CHOLESTEROL 83 MG/DL (>40); LDL CHOLESTEROL 70 MG/DL (<100); NON-HDL-C 88 MG/DL; POTASSIUM SERUM 4.3 MEQ/L (3.5-5.1); SODIUM LEVEL 138 MEQ/L (136-145); TOTAL 25(OH) VITAMIN D 49.7 NG/ML (30.0-100.0); TOTAL PROTEIN 6.3 GM/DL (6.4-8.2); TRIGLYCERIDES LEVEL 88 MG/DL (<150)
== END ==
LOC: M LABDRAW1 09:22
DX: I11.9 Hypertensive heart disease without heart failure (principal); M81.0 Age-related osteoporosis without current pathological fracture; F03.90 Unspecified dementia, unspecified severity, without behavioral disturbance, psychotic disturbance, mood disturbance, and anxiety
CPT/HCPCS: 84443

== ENCOUNTER → 2018-09-04 | Outpatient (REF) | payer MEDICARE, MEDICAID ==
[~2018-09-04] MED LIST changes: +ASPI1TAB PO; +ASPI81TA85 PO; +CALC600T60 PO; +CENTCHW4 PO; +CLAR1TAB2 PO; +INDE160C5 PO; -ISOVUE-300 61% 50ML VIAL (Q9967) As Ordered; +K-TA10TA2 PO; +LASI40TA9 PO; -LIDOCAINE 2% MDV 20 ML VIAL As Ordered; +MAGN200T PO; +MAGN64TASA PO; +NAME28CA PO; +PENT500C PO; +PRIM250T8 PO; +RALO1TAB PO; +TRAM50TA2 PO; +VITA2000 PO; +VITA250L PO; +VITMTA PO; +[UNRECOGNIZED DRUG - OTHER] PO
== END ==
LOC: M LABDRAW1 12:04
PROVIDERS: ATTEND Physician Assistant Medical
DX: R25.1 Tremor, unspecified (principal); Z51.81 Encounter for therapeutic drug level monitoring; Z79.899 Other long term (current) drug therapy

== ENCOUNTER → 2018-09-04 | Outpatient (REF) | payer MEDICARE, MEDICAID ==
[2018-09-04 12:47] LABS: HEMATOCRIT 35.5 % (36.0-47.0); HEMOGLOBIN 11.8 g/dl (12.0-15.5); MEAN CORPUSCULAR HEMOGLOBIN 31.4 pg (27.0-33.0); MEAN CORPUSCULAR HGB CONC 33.2 g/dl (32.0-36.5); MEAN CORPUSCULAR VOLUME 94.4 fl (80.0-96.0); PLATELET COUNT, AUTOMATED 270 10^3/uL (150-450); RED BLOOD COUNT 3.76 10^6/uL (4.00-5.40)
[2018-09-04 13:16] LABS: ALBUMIN 3.3 GM/DL (3.2-5.2); ALT/SGPT 39 U/L (12-78); BILIRUBIN,TOTAL 0.5 MG/DL (0.2-1.0); BLOOD UREA NITROGEN 5 MG/DL (7-18); CALCIUM LEVEL 8.6 MG/DL (8.8-10.2); CARBON DIOXIDE LEVEL 31 MEQ/L (21-32); CHLORIDE LEVEL 94 MEQ/L (98-107); CHOLESTEROL LEVEL 155 MG/DL (<200); CHOLESTEROL RISK RATIO 2.214 (<5); CREATININE FOR GFR 0.47 MG/DL (0.55-1.30); FREE T4 1.38 NG/DL (0.76-1.46); GLOMERULAR FILTRATION RATE > 60.0 (>32); GLUCOSE, FASTING 105 MG/DL (70-100); HDL CHOLESTEROL 70 MG/DL (>40); LDL CHOLESTEROL 65 MG/DL (<100); NON-HDL-C 85 MG/DL; POTASSIUM SERUM 4.5 MEQ/L (3.5-5.1); SODIUM LEVEL 132 MEQ/L (136-145); TOTAL 25(OH) VITAMIN D 51.6 NG/ML (30.0-100.0); TOTAL PROTEIN 6.3 GM/DL (6.4-8.2); TRIGLYCERIDES LEVEL 102 MG/DL (<150)
== END ==
LOC: M LABDRAW1 12:02
PROVIDERS: ATTEND Family Medicine
DX: F03.90 Unspecified dementia, unspecified severity, without behavioral disturbance, psychotic disturbance, mood disturbance, and anxiety (principal); I11.9 Hypertensive heart disease without heart failure; M81.0 Age-related osteoporosis without current pathological fracture; R25.1 Tremor, unspecified; Z51.81 Encounter for therapeutic drug level monitoring; Z79.899 Other long term (current) drug therapy

== ENCOUNTER → 2018-09-18 | Outpatient (REF) | payer MEDICARE, MEDICAID ==
[~2018-09-18] MED LIST changes: -ASPI1TAB PO; +ASPI81TA26 PO; +CHOL400T PO; -[UNRECOGNIZED DRUG - OTHER] PO
== END ==
LOC: M LABDRAW1 15:35
PROVIDERS: ATTEND Physician Assistant Medical
DX: R25.1 Tremor, unspecified (principal)

== ENCOUNTER → 2019-03-07 | Outpatient (REF) | payer MEDICARE, MEDICAID ==
[2019-03-07 18:00] LABS: HEMATOCRIT 35.8 % (36.0-47.0); HEMOGLOBIN 11.7 g/dl (12.0-15.5); MEAN CORPUSCULAR HEMOGLOBIN 32.4 pg (27.0-33.0); MEAN CORPUSCULAR HGB CONC 32.7 g/dl (32.0-36.5); MEAN CORPUSCULAR VOLUME 99.2 fl (80.0-96.0); PLATELET COUNT, AUTOMATED 167 10^3/uL (150-450); RED BLOOD COUNT 3.61 10^6/uL (4.00-5.40); WHITE BLOOD COUNT 9.8 10^3/uL (4.0-10.0)
[2019-03-07 19:15] LABS: ATYPICAL LYMPH 9 % (0-5); BASOPHILS 1 % (0-1); EOSINOPHILS 1 % (0-3); LYMPHOCYTES 17 % (16-44); METAMYELOCYTES 2 % (0-0); MONOCYTES 13 % (0-5); MYELOCYTES 1 % (0-0); NEUTROPHILS 56 % (28-66)
[2019-03-07 19:16] LABS: PLATELET ESTIMATE NORMAL (NORMAL)
== END ==
LOC: M LABDRAW1 17:00
PROVIDERS: ATTEND Family Medicine
DX: D72.829 Elevated white blood cell count, unspecified (principal)

== ENCOUNTER → 2019-04-02 | Outpatient (CLI) | payer MEDICARE, MEDICAID ==
[2019-04-02 15:14] LABS: BLOOD UREA NITROGEN 10 MG/DL (7-18); CALCIUM LEVEL 8.9 MG/DL (8.8-10.2); CARBON DIOXIDE LEVEL 33 MEQ/L (21-32); CHLORIDE LEVEL 100 MEQ/L (98-107); CREATININE FOR GFR 0.62 MG/DL (0.55-1.30); GLOMERULAR FILTRATION RATE > 60.0 (>32); GLUCOSE, FASTING 93 MG/DL (70-100); POTASSIUM SERUM 4.2 MEQ/L (3.5-5.1); SODIUM LEVEL 139 MEQ/L (136-145)
[2019-04-02 15:27] LABS: FOLATE 18.5 NG/ML (>5.4); VITAMIN B12 LEVEL 1074 PG/ML (247-911)
== END ==
LOC: M LAB 14:06
PROVIDERS: ATTEND Internal Medicine Gastroenterology
DX: K50.00 Crohn's disease of small intestine without complications (principal)

== ENCOUNTER → 2019-05-16 | Outpatient (CLI) | payer MEDICARE, MEDICAID ==
[~2019-05-16] MED LIST changes: +BESI0.6S OP; +BROM0.07 OS; +FURO40TA2 PO; +INVE1SUS OP; +POTA10CA32 PO; +VITA100066 PO
--- NOTE | 2019-05-17 07:20 | RADONC ---
RADIATION ONCOLOGY CONSULTATION NOTE: DATE: 05/16/2019 CHART NUMBER: [id number] DIAGNOSIS: Basal cell carcinoma of the right scalp. ECOG PERFORMANCE STATUS: 2 Ms. Schreiber is a delightful 88-year-old white female with the diagnosis what appears to be a basal cell carcinoma, nodular type of the right scalp who is presenting to us today for discussion of possible electron beam therapy as a therapeutic option. HISTORY OF PRESENT ILLNESS: The patient's daughter reports that she has had a red small nodule present for the last 4-6 months, however this has become more progressive with some oozing and ulceration. On 12/12/2018 a biopsy was undertaken and pathology revealed a basal cell carcinoma, nodular type, extending to the side margins and tissue base. PAST MEDICAL HISTORY: The patient's past medical history is positive for hypertension as well as cataract surgery. She had a brain bleed following a fall in May 2017. She also broke her left hip at that time. She had left hip surgery. She has a history of Crohn disease as well as an essential tremor. In the past she has had a . ALLERGIES: The patient reports that when she takes DEMEROL, she has hallucinations. SOCIAL HISTORY: The patient does not smoke cigarettes. She drinks one or two alcoholic beverages a week. FAMILY HISTORY: The patient's family history is positive for maternal aunt with some type of cancer and a daughter with skin cancer. REVIEW OF SYSTEMS: The patient's review of systems is positive for hearing loss, weakness in arms and legs bowel difficulties with Crohn disease, decreased energy, visual disturbances due to cataract surgery and some anxiety. She uses a walker due to her elderly limited physical limitations. She denies nausea, vomiting, fevers, chills, night sweats, diplopia, chest pain, headaches, shortness of breath, urinary problems or bone pain. PHYSICAL EXAMINATION: The patient is an elderly white female in no acute distress. HEENT: Exam is positive for a 3 cm x 2 cm crusted lesion present over the lateral right scalp. There are no other lesions that I appreciate over the scalp at this time. There is no palpable preauricular, cervical, supraclavicular, infraclavicular lymphadenopathy present. ASSESSMENT: I had a very lengthy discussion with this patient and her daughter. I have recommended that they also discussed this case with our frame stripper, Dr. Vineet MD. Dr. Manley's office is literally just a few feet from my office and I have personally walked them over to see him and discuss this case as well. I do believe this patient is a candidate for external beam radiation therapy if she chooses this treatment. I have discussed with her in detail the potential benefits as well as possible acute and chronic sequelae of external beam radiation therapy. We discussed logistics of treatment planning, simulation, subsequent fractionated daily radiation treatments. I did discuss hair loss with her and her overall prospects to gain local control and cure. I would anticipate at least 20 fractions of treatment if she chooses radiation. The patient and her daughter have not yet decided on the treatment options and will contact me after discussing this with Dr. Manley to let me know whether or not they want the radiation. I have given the patient my cell phone number as well as the office number and we are available to her at anytime if she wishes to initiate treatment. The patient did discuss waiting till after [place]. In light of the somewhat lengthy history that this has been going I do not see that as being a problem. cc: MD Regina Lugo, LEROY
== END ==
LOC: M ONCR 09:57
PROVIDERS: ATTEND Radiology Radiation Oncology
DX: C44.41 Basal cell carcinoma of skin of scalp and neck (principal)
CPT/HCPCS: G0463 ×2

== ENCOUNTER → 2019-06-13 | Outpatient (REF) | payer MEDICARE, MEDICAID | LOC: M LAB REF 09:42 | PROVIDERS: ATTEND Dermatology | DX: D23.4 Other benign neoplasm of skin of scalp and neck (principal) | CPT/HCPCS: 11102; 17110; 88305; G0463 ==

== ENCOUNTER → 2020-01-28 | Outpatient (CLI) | payer MEDICARE, MEDICAID ==
[~2020-01-28] MED LIST changes: -ASPI81TA85 PO; +ASPI81TA86 PO
== END ==
LOC: M WUC 15:30
PROVIDERS: ATTEND Physician Assistant Medical
DX: R25.1 Tremor, unspecified (principal)

== ENCOUNTER → 2020-02-25 | Outpatient (REF) | payer MEDICARE, MEDICAID | LOC: M LAB REF 18:35 | PROVIDERS: ATTEND Dermatology | DX: D23.30 Other benign neoplasm of skin of unspecified part of face (principal) | CPT/HCPCS: 11102; 17000; 17003; 88305; G0463 ==

== ENCOUNTER → 2020-03-03 | Outpatient (CLI) | payer MEDICARE, MEDICAID ==
[2020-03-03 20:20] LABS: HEMATOCRIT 36.3 % (36.0-47.0); HEMOGLOBIN 11.5 g/dl (12.0-15.5); MEAN CORPUSCULAR HEMOGLOBIN 31.6 pg (27.0-33.0); MEAN CORPUSCULAR HGB CONC 31.7 g/dl (32.0-36.5); MEAN CORPUSCULAR VOLUME 99.7 fl (80.0-96.0); PLATELET COUNT, AUTOMATED 181 10^3/uL (150-450); RED BLOOD COUNT 3.64 10^6/uL (4.00-5.40); WHITE BLOOD COUNT 10.2 10^3/uL (4.0-10.0)
[2020-03-03 20:46] LABS: ATYPICAL LYMPH 5 % (0-5); EOSINOPHILS 3 % (0-3); LYMPHOCYTES 35 % (16-44); MONOCYTES 10 % (0-5); NEUTROPHILS 45 % (28-66); PLATELET ESTIMATE NORMAL (NORMAL)
[2020-03-03 20:51] LABS: METAMYELOCYTES 2 % (0-0)
[2020-03-03 21:03] LABS: ALBUMIN 3.2 GM/DL (3.2-5.2); ALT/SGPT 23 U/L (12-78); BILIRUBIN,TOTAL 0.3 MG/DL (0.2-1.0); BLOOD UREA NITROGEN 8 MG/DL (7-18); CALCIUM LEVEL 8.9 MG/DL (8.8-10.2); CARBON DIOXIDE LEVEL 30 MEQ/L (21-32); CHLORIDE LEVEL 102 MEQ/L (98-107); CREATININE FOR GFR 0.57 MG/DL (0.55-1.30); GLOMERULAR FILTRATION RATE > 60.0 (>32); GLUCOSE, FASTING 94 MG/DL (70-100); POTASSIUM SERUM 4.5 MEQ/L (3.5-5.1); SODIUM LEVEL 140 MEQ/L (136-145); TOTAL PROTEIN 6.3 GM/DL (6.4-8.2)
[2020-03-04 13:58] LABS: TOTAL 25(OH) VITAMIN D 59.9 NG/ML (30.0-100.0)
[2020-03-04 13:59] LABS: VITAMIN B12 LEVEL 935 PG/ML (247-911)
== END ==
LOC: M WUC 15:35
PROVIDERS: ATTEND Family Medicine
DX: I11.9 Hypertensive heart disease without heart failure (principal); D72.829 Elevated white blood cell count, unspecified; E53.8 Deficiency of other specified B group vitamins; E55.9 Vitamin D deficiency, unspecified; M81.0 Age-related osteoporosis without current pathological fracture

== ENCOUNTER → 2020-06-11 | Outpatient (REF) | payer MEDICARE, MEDICAID | LOC: M LAB REF 17:47 | PROVIDERS: ATTEND Physician Assistant | DX: C44.329 Squamous cell carcinoma of skin of other parts of face (principal) ==

== ENCOUNTER → 2020-06-18 | Outpatient (CLI) | payer MEDICARE, MEDICAID ==
--- NOTE | 2020-06-19 05:08 | REP ---
INDICATION: RIGHT HIP PIAN. COMPARISON: None. TECHNIQUE: AP and lateral views of the sacrum and coccyx FINDINGS: Sacroiliac joints demonstrate periarticular sclerosis and possible partial fusion. There is no evidence for sacrococcygeal fracture or dislocation/subluxation. 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 No acute fracture or dislocation appreciated. <Electronically signed by Riki Vo > 06/19/20 [id number]
--- NOTE | 2020-06-19 05:13 | REP ---
INDICATION: RIGHT HIP PIAN COMPARISON: None. TECHNIQUE: AP and frog-lateral views of the right hip hip FINDINGS: Increased sclerosis to the acetabular roof with joint space narrowing and mild marginal spurring. Linear periarticular calcifications of overlying the inferior margin of the femoral head are identified and nonspecific-possibly vascular. No evidence for acute or healed injury. IMPRESSION: Mild/Moderate age related arthritic changes. <Electronically signed by Riki Vo > 06/19/20 [id number]
== END ==
LOC: M ADAMS 09:46
PROVIDERS: ATTEND Family Medicine
DX: M16.11 Unilateral primary osteoarthritis, right hip (principal); M53.3 Sacrococcygeal disorders, not elsewhere classified; M25.551 Pain in right hip
CPT/HCPCS: 36415; 72220; 73502; 80188; G0463

== ENCOUNTER → 2020-06-18 | Outpatient (REF) | payer MEDICARE, MEDICAID | LOC: M LABDRWAD 12:44 | PROVIDERS: ATTEND Physician Assistant Medical | DX: R25.1 Tremor, unspecified (principal); Z51.81 Encounter for therapeutic drug level monitoring ==

== ENCOUNTER → 2020-10-27 | Outpatient (CLI) | payer MEDICARE, MEDICAID ==
[2020-10-27 10:59] LABS: HEMATOCRIT 36.3 % (36.0-47.0); HEMOGLOBIN 11.4 g/dl (12.0-15.5); MEAN CORPUSCULAR HEMOGLOBIN 31.7 pg (27.0-33.0); MEAN CORPUSCULAR HGB CONC 31.4 g/dl (32.0-36.5); MEAN CORPUSCULAR VOLUME 100.8 fl (80.0-96.0); PLATELET COUNT, AUTOMATED 181 10^3/uL (150-450)
[2020-10-27 11:07] LABS: WHITE BLOOD COUNT 11.5 10^3/uL (4.0-10.0)
[2020-10-27 11:18] LABS: ATYPICAL LYMPH 2 % (0-5); EOSINOPHILS 4 % (0-3); LYMPHOCYTES 30 % (16-44); METAMYELOCYTES 1 % (0-0); MONOCYTES 10 % (0-5); NEUTROPHILS 53 % (28-66); PLATELET ESTIMATE NORMAL (NORMAL)
[2020-10-27 11:19] LABS: ANISOCYTOSIS 1+
[2020-10-27 11:32] LABS: ERYTHROCYTE SEDIMENTATION RATE 41 mm/hr (0-30)
[2020-10-27 11:33] LABS: ALT/SGPT 22 U/L (12-78); BILIRUBIN,TOTAL 0.4 MG/DL (0.2-1.0); BLOOD UREA NITROGEN 8 MG/DL (7-18); CALCIUM LEVEL 8.8 MG/DL (8.8-10.2); CARBON DIOXIDE LEVEL 32 MEQ/L (21-32); CHLORIDE LEVEL 105 MEQ/L (98-107); CPK CREATINE PHOSPHOKINASE 50 U/L (26-192); CREATININE FOR GFR 0.53 MG/DL (0.55-1.30); FREE T4 1.03 NG/DL (0.76-1.46); GLOMERULAR FILTRATION RATE > 60.0 (>32); GLUCOSE, FASTING 115 MG/DL (70-100); MAGNESIUM LEVEL 2.1 MG/DL (1.8-2.4); POTASSIUM SERUM 4.1 MEQ/L (3.5-5.1); SODIUM LEVEL 142 MEQ/L (136-145); TOTAL PROTEIN 6.5 GM/DL (6.4-8.2); VITAMIN B12 LEVEL 1128 PG/ML (247-911)
== END ==
LOC: M WUC 10:10
PROVIDERS: ATTEND Family Medicine
DX: D72.829 Elevated white blood cell count, unspecified (principal); E53.8 Deficiency of other specified B group vitamins; M62.81 Muscle weakness (generalized); G25.0 Essential tremor; I11.9 Hypertensive heart disease without heart failure; Z79.899 Other long term (current) drug therapy

== ENCOUNTER → 2021-03-01 | Outpatient (CLI) | payer MEDICARE, MEDICAID | LOC: M WUC 14:59 | PROVIDERS: ATTEND Physician Assistant Medical | DX: G40.909 Epilepsy, unspecified, not intractable, without status epilepticus (principal) ==

== ENCOUNTER → 2021-04-27 | Outpatient (REF) | payer MEDICARE ==
[2021-04-27 13:24] LABS: APPEARANCE, URINE HAZY (CLEAR); BACTERIA, URINE AUTO NEGATIVE (NEGATIVE); BILIRUBIN, URINE AUTO NEGATIVE (NEGATIVE); BLOOD, URINE BLOOD NEGATIVE (NEGATIVE); CALCIUM OXALATE CRYSTALS LARGE; COLOR, URINE AMBER (YELLOW); GLUCOSE, URINE (UA) AUTO NEGATIVE (NEGATIVE); KETONE, URINE AUTO NEGATIVE (NEGATIVE); LEUKOCYTE ESTERASE, URINE AUTO TRACE (NEGATIVE); MUCUS, URINE SMALL (NEGATIVE); NITRITE, URINE AUTO NEGATIVE (NEGATIVE); PROTEIN, URINE AUTO 1+ mg/dL (NEGATIVE); RBC, URINE AUTO 10 /HPF (0-3); SPECIFIC GRAVITY URINE AUTO 1.019 (1.002-1.035); SQUAMOUS EPITHELIAL CELL UR AU 0 /HPF (0-6); UROBILINOGEN, URINE AUTO 0.2 mg/dL (0.0-2.0); WBC, URINE AUTO 7 /HPF (0-3)
== END ==
LOC: M SFHCADAM 10:54
PROVIDERS: ATTEND Family Medicine
DX: R39.81 Functional urinary incontinence (principal)